=== PATIENT | female | born 1960 | race African-American/Black ===

== ENCOUNTER → 2016-05-31 | Outpatient (CLI) | payer OTHER ==
[2016-01-11 08:30] VITALS: BP 189/88
[~2016-05-31] MED LIST: AMLO5TAB2 PO; ASPI-3 PO; ASPI-482 PO; DICY20TA30 PO; IBUP-1060 PO; NAPR500T3 PO; ONDA4TAB7 PO; OXYC-323 PO; QUET25TA5 PO; TIOT18CA IH; VENTOLIN HFA18 GM IH
--- NOTE | 2016-05-31 15:03 | KCIC ---
Examination: Ultrasound kidneys. HISTORY History of hematuria. COMPARISON None available Findings: The right kidney measures 10.2 x 4.5 x 3.9 centimeters. The left kidney measures 11.0 x 5.8 x 5.0 centimeters. The unit bladder is mildly distended. There is a 1.2 centimeter echogenicity identified in the inferior aspect of the right kidney likely intrarenal collecting system calculus. There is minimal prominence of the right renal pelvis. IMPRESSION 1.3 centimeter echogenicity identified in the inferior right kidney likely intrarenal collecting system calculus. There is minimal prominence of the right renal pelvis could be of prominent extrarenal pelvis or minimal hydronephrosis. Electronically signed by: Guevara Gamboa (May 31, 2016 15:01:35)
--- NOTE | 2016-05-31 15:26 | KCIC ---
Examination: DEXA scan. HISTORY History of postmenopausal screening, osteoporosis. COMPARISON None available. FINDINGS The bone mineral density in the lumbar spine is 1.258 grams per centimeter square with a T-score of 1.9 and a Z-score of 2.1. The bone density in the left hip is 1.348 grams per centimeter square with a T-score of 3.3 and a Z-score of 2.5. Impression : According to world Congress diagnostic guidelines the bone mineral density in the lumbar spine and in the left hip is normal. Electronically signed by: Guevara Gamboa (May 31, 2016 15:24:56)
--- NOTE | 2016-05-31 15:40 | KCIC ---
Bilateral digital screening mammograms with CAD: HISTORY Routine screening. COMPARISON Comparison is made to previous studies dated 09/21/2010 and 11/20/2004. FINDINGS Breast density category A. The skin and nipples show no abnormalities. No abnormal lymph nodes are seen in the axilla. The breast parenchyma is predominately fatty. There are no dominant masses, suspicious calcifications or architectural distortions. IMPRESSION No evidence of malignancy. Recommend routine annual mammographic screening. This study was interpreted with the benefit of Computerized Aided Detection (CAD). Mammography is not 100% sensitive in detecting breast cancer. Therefore, a self breast exam and a clinical breast exam are very important. A negative mammogram does not negate a clinically suspicious finding and should not result in a delay in biopsying a clinically suspicious abnormality. BI-RADS category 1. Negative. This patient's information has been entered into a reminder system for the patient to be notified with the results of this examination and a target date for her next mammograms. Electronically signed by: Maria Esther Miller MD (May 31, 2016 15:38:05)
== END | disposition home or self-care (01) ==
LOC: KCIC US 13:54
PROVIDERS: ATTEND Internal Medicine
DX: Z12.31 Encounter for screening mammogram for malignant neoplasm of breast (principal); Z13.820 Encounter for screening for osteoporosis; Z78.0 Asymptomatic menopausal state
CPT/HCPCS: 76770; 77080; G0202; 77067

== ENCOUNTER 2016-07-18 12:29 | Emergency (ER) | payer OTHER ==
[~2016-07-18] VITALS: Ht 170.2 cm; Wt 117.9 kg
[2016-07-18] MEDS ORDERED: MORPHINE SULFATE 4 MG/ML DISP.SYRIN. IV/SQ PRN (13:00)
[2016-07-18 13:02] LABS: BILIRUBIN,URINE NEGATIVE (NEG); GLUCOSE,URINE NEGATIVE (NEG); NITRITE,URINE NEGATIVE (NEG); PH,URINE 5.5; PROTEIN,URINE NEGATIVE (NEG-TRACE)
--- NOTE | 2016-07-18 13:09 | PHYS DOC ---
Past Medical History Past Medical History: Asthma, Diabetes-Type II, GERD, Hypertension, Kidney Stone Additional Past Medical Histor: FIBROID Past Surgical History: Hysterectomy, Other Additional Past Surgical Histo: HERNIA Alcohol Use: Occasionally Drug Use: None Adult General Chief Complaint Chief Complaint: FLANK PAIN HPI HPI Patient is a 56 year old female who presents with complaint of left-sided flank pain. Patient states that she has been struggling with left flank pain for the past several weeks, however she started getting severe pain starting earlier today which has been constant. Patient rates pain currently is 10 out of 10. Patient states that it is colicky and radiates into her left lower abdomen. Patient denies any associated fevers, vomiting, or bloody stools but patient states that she has had intermittent nausea. Patient states that she had imaging 2 months ago which showed evidence of kidney stones and patient was referred to Dr. Raymundo of urology here [facility]. Patient has not taken any medications to help with symptoms. Patient denies any exacerbating factors. Review of Systems Review of Systems Constitutional: Denies fever or chills [] Eyes: Denies change in visual acuity, redness, or eye pain [] HENT: Denies nasal congestion or sore throat [] Respiratory: Denies cough or shortness of breath [] Cardiovascular: Denies chest pain or edema [] GI: Left flank pain, nausea, denies abdominal pain, vomiting, bloody stools or diarrhea [] : Denies dysuria or hematuria [] Musculoskeletal: Denies back pain or joint pain [] Integument: Denies rash or skin lesions [] Neurologic: Denies headache, focal weakness or sensory changes [] Endocrine: Denies polyuria or polydipsia [] Current Medications Current Medications Current Medications Medications (Trade) Dose Ordered Sig/[facility] Start Time Stop Time Status Last Admin Dose Admin Famotidine (Pepcid) 20 mg 1X ONCE 07/18/16 13:15 07/18/16 13:16 DC 07/18/16 13:27 20 MG Morphine Sulfate 4 mg 4 mg PRN Q15MIN PRN 07/18/16 13:00 07/19/16 12:59 07/18/16 13:28 4 MG Ondansetron HCl (Zofran) 4 mg 1X ONCE 07/18/16 13:15 07/18/16 13:16 DC 07/18/16 13:25 4 MG Sodium Chloride (Iv Sodium Chloride 0.9% 1000ml Bag) 1,000 ml @ 100 mls/hr Q10H 07/18/16 13:15 07/18/16 23:14 07/18/16 13:25 100 MLS/HR Allergies Allergies Allergies Coded Allergies Type Severity Reaction Last Updated Verified No Known Drug Allergies 08/27/13 No Physical Exam Physical Exam Constitutional: Alert, afebrile, appears in mild discomfort. [] HENT: Normocephalic, atraumatic, bilateral external ears normal, oropharynx moist, no oral exudates, nose normal. [] Eyes: PERRLA, EOMI, conjunctiva normal, no discharge. [] Neck: Normal range of motion, no tenderness, supple, no stridor. [] Cardiovascular:Heart rate regular rhythm, no murmur [] Lungs & Thorax: Bilateral breath sounds clear to auscultation [] Abdomen: Bowel sounds normal, soft, no tenderness, no masses, no pulsatile masses. [] Skin: Warm, dry, no erythema, no rash. [] Back: No tenderness, no CVA tenderness. [] Extremities: No tenderness, no cyanosis, no clubbing, ROM intact, no edema. [] Neurologic: Alert and oriented X 3, normal motor function, normal sensory function, no focal deficits noted. [] Current Patient Data Vital Signs Vital Signs Date Time Temp Pulse Resp B/P Pulse Ox O2 Delivery O2 Flow Rate FiO2 07/18/16 13:28 Room Air 07/18/16 12:50 97.8 78 18 145/76 100 97.8 Lab Values Laboratory Tests Test 07/18/16 12:46 07/18/16 13:10 Urine Collection Type Unknown Urine Color Yellow Urine Clarity Clear Urine pH 5.5 Urine Specific [place] 1.025 Urine Protein Negativemg/dL (NEG-TRACE) Urine Glucose (UA) Negativemg/dL (NEG) Urine Ketones (Stick) Negativemg/dL (NEG) Urine Blood Moderate (NEG) Urine Nitrite Negative (NEG) Urine Bilirubin Negative (NEG) Urine Urobilinogen Dipstick 1.0mg/dL (0.2 mg/dL) Urine Leukocyte Esterase Negative (NEG) Urine RBC 3-5/HPF (0-2) Urine WBC Occ/HPF (0-4) Urine Squamous Epithelial Cells Few/LPF Urine Bacteria Few/HPF (0-FEW) Urine Mucus Marked/LPF White Blood Count 9.3x10^3/uL (4.0-11.0) Red Blood Count 4.12x10^6/uL (3.50-5.40) Hemoglobin 12.6g/dL (12.0-15.5) Hematocrit 38.0% (36.0-47.0) Mean Corpuscular Volume 92fL (79-100) Mean Corpuscular Hemoglobin 31pg (25-35) Mean Corpuscular Hemoglobin Concent 33g/dL (31-37) Red Cell Distribution Width 13.6% (11.5-14.5) Platelet Count 272x10^3/uL (140-400) Neutrophils (%) (Auto) 46% (31-73) Lymphocytes (%) (Auto) 44% (24-48) Monocytes (%) (Auto) 8% (0-9) Eosinophils (%) (Auto) 1% (0-3) Basophils (%) (Auto) 0% (0-3) Neutrophils # (Auto) 4.3x10^3uL (1.8-7.7) Lymphocytes # (Auto) 4.1x10^3/uL (1.0-4.8) Monocytes # (Auto) 0.8x10^3/uL (0.0-1.1) Eosinophils # (Auto) 0.1x10^3/uL (0.0-0.7) Basophils # (Auto) 0.0x10^3/uL (0.0-0.2) Sodium Level 142mmol/L (136-145) Potassium Level 3.7mmol/L (3.5-5.1) Chloride Level 107mmol/L (98-107) Carbon Dioxide Level 29mmol/L (21-32) Anion Gap 6 (6-14) Blood Urea Nitrogen 14mg/dL (7-20) Creatinine 1.0mg/dL (0.6-1.0) Estimated GFR (Cockcroft-Gault) 69.9 BUN/Creatinine Ratio 14 (6-20) Glucose Level 88mg/dL (70-99) Calcium Level 9.3mg/dL (8.5-10.1) Total Bilirubin 0.2mg/dL (0.2-1.0) Aspartate Amino Transferase (AST) 16U/L (15-37) Alanine Aminotransferase (ALT) 25U/L (14-59) Alkaline Phosphatase 90U/L (46-116) Total Protein 7.7g/dL (6.4-8.2) Albumin 3.6g/dL (3.4-5.0) Albumin/Globulin Ratio 0.9 (1.0-1.7) L Lipase 81U/L (73-393) Laboratory Tests 07/18/16 13:10 Laboratory Tests 07/18/16 13:10 EKG EKG Not performed [] Radiology/Procedures Radiology/Procedures [facility] [address] [place] [address] IMAGING REPORT Signed PATIENT: PEDRO DUKE ACCOUNT: [id number] : 1960 LOCATION: ER AGE: 56 SEX: F EXAM STATUS: REG ER ORD. PHYSICIAN: IMELDA BUNCH MD REASON: left flank pain, history of kidney stones PROCEDURE: CT ABDOMEN PELVIS WO CONTRAST CT of the abdomen and pelvis without contrast, 07/18/2016: History: Left flank pain, hematuria Noncontrast scans were obtained through the urinary tract utilizing the renal stone protocol. A small parenchymal calcification is noted posteriorly in the right no left renal calcifications are evident. The left renal collecting system and ureter are not dilated. There are parenchymal calcifications in the lower pole of the right kidney. One of these is associated with an overlying cortical scar. The right renal collecting system and right ureter are not dilated. No ureteral calculus is identified, although neither distal ureter can be clearly traced through the pelvis. The partially filled urinary bladder is unremarkable. The unopacified liver shows no abnormality. The gallbladder is unremarkable. No pancreatic abnormality is seen. The spleen is of normal size. The bowel loops are not dilated. There is a moderate amount of stool scattered throughout the colon. The appendix is visualized and shows no abnormality. No free air or free fluid is evident in the abdomen or pelvis. There is bilateral spondylolysis at L5 with a slight spondylolisthesis at L5-S1. IMPRESSION: 1. Right renal parenchymal calcifications. 2. No obstructing urinary tract calculus is identified. PQRS Compliance Statement: One or more of the following individualized dose reduction techniques were utilized for this examination: 1. Automated exposure control 2. Adjustment of the mA and/or kV according to patient size 3. Use of iterative reconstruction technique DICTATED and SIGNED BY: JAZMÍN ROCHA MD DATE: 07/18/16 4731 CC: IMELDA BUNCH MD; MAYNOR ANG MD ~ [] Course & Med Decision Making Course & Med Decision Making Pertinent Labs and Imaging studies reviewed. (See chart for details) Patient was given IV fluids, morphine, and Zofran. On reevaluation the patient states her pain has improved at this time. The patient's CT does not reveal findings consistent with ureteral calculus. I have suspicion that the patient's symptoms may be due to radiculopathy from degenerative arthritis in the lumbar spine. The patient was given IV Decadron and will be continued on additional four-day course of prednisone and also will be given hydrocodone for breakthrough pain for outpatient therapy. Advised patient follow-up with her primary doctor in 3-5 days and return to the emergency department for any worsening symptoms per patient voiced understanding and in agreement with treatment plan. Dragon Disclaimer Dragon Disclaimer This electronic medical record was generated, in whole or in part, using a voice recognition dictation system. Departure Departure Impression: Primary Impression: Left flank pain Disposition: 01 HOME, SELF-CARE Condition: IMPROVED Referrals: MAYNOR ANG MD (PCP) Patient Instructions: Flank Pain Additional Instructions: Your workup today did not show convincing evidence for kidney stones as a cause of your pain. It is suspected that your symptoms may be due to arthritis of your lumbar spine. Follow-up with your primary doctor in 3-5 days. Return to the emergency department for any worsening symptoms. Scripts Hydrocodone/Apap 5-325 (Mcdonald 5-325 Tablet)1 Each Tablet1-2 Tab PO Q4-6HRS PRN PAIN #20 TAB Prov:IMELDA BUNCH MD 07/18/16 Prednisone 20 Mg Tablet1 Tab PO BID #8 TAB Start this medication on July 19, 2016. Prov:IMELDA BUNCH MD 07/18/16 IMELDA BUNCH MD Jul 18, 2016 13:09
[2016-07-18 13:15] LABS: BACTERIA,URINE FEW /HPF (0-FEW); SQUAMOUS EPITHELIAL CELL,UR FEW /LPF; WBC,URINE OCC /HPF (0-4)
[2016-07-18] MEDS ORDERED: ONDANSETRON PF 4 MG/2 ML VIAL. IV ONE (13:15)
[2016-07-18] MEDS ORDERED: FAMOTIDINE 20 MG/2 ML VIAL IVP ONE (13:15)
[2016-07-18] MEDS ORDERED: IV NORMAL SALINE 1000ML BAG 1,000 ML IV SCH (13:15)
[2016-07-18 13:20] LABS: BASO % 0 % (0-3); EOS % 1 % (0-3); HEMOGLOBIN 12.6 g/dL (12.0-15.5); LYMPH # 4.1 x10^3/uL (1.0-4.8); LYMPH % 44 % (24-48); MEAN CORPUSCULAR HEMOGLOBIN 31 pg (25-35); MEAN CORPUSCULAR HGB CONC 33 g/dL (31-37); MEAN CORPUSCULAR VOLUME 92 fL (79-100); MONO % 8 % (0-9); NEUT % 46 % (31-73); PLATELET COUNT 272 x10^3/uL (140-400); RED BLOOD COUNT 4.12 x10^6/uL (3.50-5.40); RED CELL DISTRIBUTION WIDTH 13.6 % (11.5-14.5); WHITE BLOOD COUNT 9.3 x10^3/uL (4.0-11.0)
[2016-07-18 13:32] LABS: CALCIUM 9.3 mg/dL (8.5-10.1); GFR 69.9; POTASSIUM 3.7 mmol/L (3.5-5.1)
[2016-07-18 13:38] LABS: ALBUMIN 3.6 g/dL (3.4-5.0); ALBUMIN/GLOBULIN RATIO 0.9 (1.0-1.7); TOTAL BILIRUBIN 0.2 mg/dL (0.2-1.0); TOTAL PROTEIN 7.7 g/dL (6.4-8.2)
[2016-07-18 13:53] VITALS: BP 123/65
--- NOTE | 2016-07-18 13:55 | RAD ---
CT of the abdomen and pelvis without contrast, 07/18/2016: History: Left flank pain, hematuria Noncontrast scans were obtained through the urinary tract utilizing the renal stone protocol. A small parenchymal calcification is noted posteriorly in the right no left renal calcifications are evident. The left renal collecting system and ureter are not dilated. There are parenchymal calcifications in the lower pole of the right kidney. One of these is associated with an overlying cortical scar. The right renal collecting system and right ureter are not dilated. No ureteral calculus is identified, although neither distal ureter can be clearly traced through the pelvis. The partially filled urinary bladder is unremarkable. The unopacified liver shows no abnormality. The gallbladder is unremarkable. No pancreatic abnormality is seen. The spleen is of normal size. The bowel loops are not dilated. There is a moderate amount of stool scattered throughout the colon. The appendix is visualized and shows no abnormality. No free air or free fluid is evident in the abdomen or pelvis. There is bilateral spondylolysis at L5 with a slight spondylolisthesis at L5-S1. IMPRESSION: 1. Right renal parenchymal calcifications. 2. No obstructing urinary tract calculus is identified. PQRS Compliance Statement: One or more of the following individualized dose reduction techniques were utilized for this examination: 1. Automated exposure control 2. Adjustment of the mA and/or kV according to patient size 3. Use of iterative reconstruction technique
[2016-07-18] MEDS ORDERED: HYDR-971 PO (14:15)
[2016-07-18] MEDS ORDERED: PRED20TA PO (14:15)
[2016-07-18] MEDS ORDERED: DEXAMETHASONE SOD PHOS 4 MG/ML VIAL IV ONE (14:30)
== END 2016-07-18 14:27 | disposition home or self-care (01) ==
LOC: ER 12:29
DX: R10.9 Unspecified abdominal pain (principal); R11.0 Nausea; J45.909 Unspecified asthma, uncomplicated; E11.9 Type 2 diabetes mellitus without complications; K21.9 Gastro-esophageal reflux disease without esophagitis; I10 Essential (primary) hypertension; Z87.442 Personal history of urinary calculi
CPT/HCPCS: 36415; 74176; 80053; 81001; 83690; 85027; 96361; 96374; 96375; 99285; J1100; J2270; J2405; J7030; S0028

== ENCOUNTER → 2016-08-28 | Outpatient (CLI) | payer OTHER ==
[~2016-08-28] MED LIST changes: +CONTRAST GIVEN MC PRN; +HYDR-971 PO; +IOHEXOL 300 MG/ML 75 ML VIAL IV ONE; +PRED20TA PO
--- NOTE | 2016-08-28 11:20 | RAD ---
Examination: CT of the abdomen pelvis without and with IV contrast History: History of hematuria Comparison: 07/18/2016 Technique: Axial CT images of the paranasal performed without and with IV contrast using CT urogram protocol. Coronal and sagittal reformats were performed. PQRS Compliance Statement: One or more of the following individualized dose reduction techniques were utilized for this examination: 1. Automated exposure control 2. Adjustment of the mA and/or kV according to patient size 3. Use of iterative reconstruction technique Findings: The visualized bibasal lungs grossly appears unremarkable. The visualized liver, spleen, adrenals grossly appears unremarkable. The visualized pancreas grossly appears unremarkable. The gallbladder is mildly distended. The small bowel is nondilated The stomach is mildly distended. Feces and gas noted throughout the colon The visualized appendix grossly appears unremarkable. The bilateral kidneys enhance symmetrically. Cortical calcifications identified in the right kidney grossly similar to prior exam. 2 small punctate 2 to 3 mm intrarenal collecting system calculi identified in the right kidney. No evidence of hydronephrosis. The urinary bladder is mildly distended with contrast. No evidence of filling defect identified in the urinary bladder. No evidence of solid appearing lesions identified in the bilateral kidneys. There is a small subcentimeter hypodensity identified in the right kidney best visualized on series 4 image #57 measuring 8 mm is difficult to characterize probably a cyst given the appearance. Mild degenerative changes lumbar spine. L5 spondylolysis. Impression: 1. 2 punctate 2 to 3 mm intrarenal collecting system calculi identified in the right kidney. No evidence of obstructing calculus identified. No evidence of hydronephrosis. No evidence of enhancing lesion identified. 2. Small 8 mm hypodensity identified in the right kidney is difficult to characterize probably a cyst. Follow-up examination in 6 months is recommended to document stability.
== END | disposition home or self-care (01) ==
LOC: CT 08:16
PROVIDERS: ATTEND Urology
DX: R31.9 Hematuria, unspecified (principal); M47.896 Other spondylosis, lumbar region
CPT/HCPCS: 74178; Q9967

== ENCOUNTER 2016-10-06 06:02 | Emergency (ER) | payer OTHER ==
[~2016-10-06] VITALS: Ht 170.2 cm; Wt 117.9 kg
[~2016-10-06 06:02] MED LIST changes: -CONTRAST GIVEN MC PRN; -IOHEXOL 300 MG/ML 75 ML VIAL IV ONE
[2016-10-06 06:05] VITALS: BP 167/73
[2016-10-06] MEDS ORDERED: NAPROXEN 250 MG TABLET PO STA (06:44)
[2016-10-06] MEDS ORDERED: HYDR-971 PO (06:50)
[2016-10-06] MEDS ORDERED: NAPR375T3 PO (06:50)
--- NOTE | 2016-10-06 06:51 | PHYS DOC ---
Past Medical History Past Medical History: Asthma, Diabetes-Type II, GERD, Hypertension, Kidney Stone Additional Past Medical Histor: FIBROID Past Surgical History: Hysterectomy, Other Additional Past Surgical Histo: HERNIA Alcohol Use: Occasionally Drug Use: None Adult General Chief Complaint Chief Complaint: KNEE SWELLING HPI HPI Patient is a 56 year old female who presents with complaint of left knee swelling and pain. Patient states that her symptoms started yesterday and have been gradually worsening. Patient states that she has been having difficulty walking up and down steps due to her pain. Patient lives in an apartment on the third floor. Patient states that she has had trouble with her knees in the past but is unsure if she has history of arthritis or other problems with her knees. Patient does admit that she has had an intra-articular injection in the past for treatment. Patient follows a Dr. Ang for primary care. Patient also mentioned that she has had intermittent chills and fatigue over the past 3 days. Patient denies any fevers, shortness of breath, or chest pain. Patient states that she is currently not having chills or fatigue at this time. The patient has taken ibuprofen with no relief in symptoms. Patient rates her pain currently as 5 out of 10. Review of Systems Review of Systems Constitutional: Intermittent chills and fatigue [] Eyes: Denies change in visual acuity, redness, or eye pain [] HENT: Denies nasal congestion or sore throat [] Respiratory: Denies cough or shortness of breath [] Cardiovascular: Denies chest pain or edema [] GI: Denies abdominal pain, nausea, vomiting, bloody stools or diarrhea [] : Denies dysuria or hematuria [] Musculoskeletal: Left knee pain and swelling [] Integument: Denies rash or skin lesions [] Neurologic: Denies headache, focal weakness or sensory changes [] Allergies Allergies Allergies Coded Allergies Type Severity Reaction Last Updated Verified No Known Drug Allergies 08/27/13 No Physical Exam Physical Exam Constitutional: Well developed, well nourished, no acute distress, non-toxic appearance. [] HENT: Normocephalic, atraumatic, bilateral external ears normal, oropharynx moist, no oral exudates, nose normal. [] Eyes: PERRLA, EOMI, conjunctiva normal, no discharge. [] Neck: Normal range of motion, no tenderness, supple, no stridor. [] Cardiovascular:Heart rate regular rhythm, no murmur [] Lungs & Thorax: Bilateral breath sounds clear to auscultation [] Abdomen: Bowel sounds normal, soft, no tenderness, no masses, no pulsatile masses. [] Skin: Warm, dry, no erythema, no rash. [] Back: No tenderness, no CVA tenderness. [] Extremities: Mild left knee swelling, no warmth, minimal tenderness along anterior joint line, full range of motion present, no cyanosis, no clubbing, ROM intact, no edema. [] Neurologic: Alert and oriented X 3, normal motor function, normal sensory function, no focal deficits noted. [] Current Patient Data Vital Signs Vital Signs Date Time Temp Pulse Resp B/P (MAP) Pulse Ox O2 Delivery O2 Flow Rate FiO2 10/06/16 06:05 98.4 66 18 167/73 (104) 100 Room Air 98.4 EKG EKG Not performed [] Radiology/Procedures Radiology/Procedures Not performed [] Course & Med Decision Making Course & Med Decision Making Pertinent Labs and Imaging studies reviewed. (See chart for details) The patient's clinical findings are consistent with exacerbation of chronic degenerative arthritis. The patient mentioned symptoms of fatigue and chills, however patient states that these symptoms are not present at this time. These are very nonspecific symptoms and will need further self-monitoring is currently these don't appear to be associated with an acute process. Patient was given Naprosyn and an Jose wrap was applied to the left knee by the emergency department nurse. My evaluation post wrap application showed normal capillary refill and normal sensation in all 5 digits of the left foot. Patient will be continued on naproxen and hydrocodone for treatment. Advised adjunct RICE therapy for improvement in symptoms. Recommended that the patient schedule an appointment in the next week with her primary doctor for reevaluation and likely need for referral to physical therapy or orthopedic surgery for further evaluation. Advised return emergency department for any worsening symptoms. Patient voiced understanding and in agreement with treatment plan. Dragon Disclaimer Dragon Disclaimer This electronic medical record was generated, in whole or in part, using a voice recognition dictation system. Departure Departure Impression: Primary Impression: Arthritis Disposition: 01 HOME, SELF-CARE Condition: GOOD Referrals: MAYNOR ANG MD (PCP) Patient Instructions: Arthritis, Degenerative-Brief, Knee Wraps (Elastic Bandage) and RICE Additional Instructions: Follow-up with Dr. Ang in one week for reevaluation. Return to the emergency department for any worsening symptoms. Scripts Naproxen (NAPROXEN) 375 Mg Tablet 1 TAB PO BID Y for INFLAMMATION, #20 TAB 0 Refills Prov: IMELDA BUNCH MD 10/06/16 Hydrocodone/Apap 5-325 (NORCO 5-325 TABLET) 1 Each Tablet 1-2 TAB PO Q4-6HRS Y for PAIN, #20 TAB Prov: IMELDA BUNCH MD 10/06/16 IMELDA BUNCH MD Oct 06, 2016 06:51
== END 2016-10-06 07:03 | disposition home or self-care (01) ==
LOC: ER 06:02
DX: M17.12 Unilateral primary osteoarthritis, left knee (principal); J45.909 Unspecified asthma, uncomplicated; E11.9 Type 2 diabetes mellitus without complications; K21.9 Gastro-esophageal reflux disease without esophagitis; I10 Essential (primary) hypertension; Z87.442 Personal history of urinary calculi; Z90.710 Acquired absence of both cervix and uterus
CPT/HCPCS: 99283

== ENCOUNTER 2018-07-08 10:36 | Emergency (ER) | payer OTHER ==
[~2018-07-08] VITALS: Ht 167.6 cm; Wt 117.9 kg
[~2018-07-08 10:36] MED LIST changes: +ACYC400T PO; +AMLO10TA8 PO; +AMLO5TAB10 PO; -AMLO5TAB2 PO; +ATROVENT IH; +CELE100C59 PO; +FLUT1DIS3 IN; +GABA100C6 PO; +HYDR-3164 PO; -HYDR-971 PO; +LOSA100T14 PO; +METF500T16 PO; +NAPR-514 PO; +NAPR-695 PO; -NAPR500T3 PO; +OXYB5TAB PO; -OXYC-323 PO; +OXYC1TAB15 PO
[2018-07-08 10:47] VITALS: BP 172/84
[2018-07-08] MEDS ORDERED: CYCL10TA2 PO (11:00)
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
== END 2018-07-08 11:10 | disposition home or self-care (01) ==
LOC: ER 10:36
DX: S00.03XA Contusion of scalp, initial encounter (principal); R51 Headache; J44.9 Chronic obstructive pulmonary disease, unspecified; E11.9 Type 2 diabetes mellitus without complications; I10 Essential (primary) hypertension; K21.9 Gastro-esophageal reflux disease without esophagitis; V79.88XA Bus occupant (driver) (passenger) injured in other specified transport accidents, initial encounter; Y93.89 Activity, other specified; Y92.481 Parking lot as the place of occurrence of the external cause; Y99.8 Other external cause status
CPT/HCPCS: 99283

== ENCOUNTER 2018-08-14 16:52 | Emergency (ER) | payer OTHER ==
[~2018-08-14] VITALS: Ht 170.2 cm; Wt 117.9 kg
[~2018-08-14 16:52] MED LIST changes: +CYCL10TA2 PO
[2018-08-14 17:00] VITALS: BP 138/88
[2018-08-14] MEDS ORDERED: IPRATRPIUM/ALBUTEROL 0.5/2.5MG 3 ML NEBU. NEB ONE (17:45)
[2018-08-14] MEDS ORDERED: predniSONE 10 MG TABLET PO ONE (17:45)
--- NOTE | 2018-08-14 17:50 | PHYS DOC ---
Past Medical History Past Medical History: Asthma, COPD, Diabetes-Type II, GERD, Hypertension, Kidney Stone Additional Past Medical Histor: FIBROID Past Surgical History: Hysterectomy, Other Additional Past Surgical Histo: HERNIA Alcohol Use: Occasionally Drug Use: None Adult General Chief Complaint Chief Complaint: COUGH HPI HPI 58-year-old female presents to ER via POV for complaints of productive cough and sore throat. Patient reports she has history of COPD and is a daily smoker. She denies chest pain or palpitations. She reports she has had yellowish phlegm. She reports she's had labored breathing. She reports she has felt feverish but hasn't checked her temperature. Patient denies any other symptoms. She reports regular appetite denies any vomiting or diarrhea episodes. Patient denies urinary symptoms. Review of Systems Review of Systems Constitutional: Denies fever or chills [] Eyes: Denies change in visual acuity, redness, or eye pain [] HENT: Denies nasal congestion. Reports sore throat Respiratory: Reports prod. cough with labored breathing Cardiovascular: Denies CP/palpitations or chest tightness GI: Denies abdominal pain, nausea, vomiting, bloody stools or diarrhea [] : Denies dysuria or hematuria [] Musculoskeletal: Denies back/neck pain or joint pain [] Integument: Denies rash or skin lesions [] Neurologic: Denies headache, focal weakness or sensory changes. Denies dizziness Endocrine: Denies polyuria or polydipsia [] All other systems were reviewed and found to be within normal limits, except as documented in this note. Current Medications Current Medications Current Medications Medications (Trade) Dose Ordered Sig/Ayush Start Time Stop Time Status Last Admin Dose Admin Albuterol/ Ipratropium (Duoneb) 3 ml 1X ONCE 08/14/18 17:45 08/14/18 17:46 DC 08/14/18 17:50 3 ML Prednisone (Prednisone) 50 mg 1X ONCE 08/14/18 17:45 08/14/18 17:46 DC 08/14/18 18:07 50 MG Allergies Allergies Allergies Coded Allergies Type Severity Reaction Last Updated Verified No Known Drug Allergies 08/27/13 No Physical Exam Physical Exam Constitutional: Well developed, well nourished, no acute distress, non-toxic appearance. [] HENT: Normocephalic, atraumatic, bilateral ears normal, oropharynx moist- no pharyngeal swelling/erythema, no oral exudates, nose normal. [] Eyes: Pupils equal, conjunctiva normal, no discharge. [] Neck: Normal range of motion, no tenderness, supple, no stridor/gross adenopathy Cardiovascular: Heart rate regular rhythm, no murmur [] Lungs & Thorax: Diminished air movement thru all lung weiner with slight expiratory wheeze rt upper lung field. Nonprod. cough during exam. Speaking in full sentences. Resp. equal/nonlabored Abdomen: Bowel sounds normal, soft, no tenderness, no masses, no pulsatile masses. [] Skin: Warm, dry, no erythema, no rash. [] Back: No tenderness, no CVA tenderness. [] Extremities: No tenderness, no cyanosis, no clubbing, ROM intact, no edema. [] Neurologic: Alert and oriented X 3, normal motor function, normal sensory function, no focal deficits noted. [] Psychologic: Affect normal, judgement normal, mood normal. [] Current Patient Data Vital Signs Vital Signs Date Time Temp Pulse Resp B/P (MAP) Pulse Ox O2 Delivery O2 Flow Rate FiO2 08/14/18 17:53 99 Room Air 08/14/18 17:00 97.9 87 20 138/88 (105) 97.9 EKG EKG [] Course & Med Decision Making Course & Med Decision Making Pertinent Imaging studies reviewed. (See chart for details) Patient's case and imaging was discussed with Dr. Greene who viewed chest x- ray with no obvious acute findings. This was discussed with patient. Patient was provided with dose of prednisone and DuoNeb treatment on reevaluation patient's wheezing right upper lobe has subsided and patient has increased air movement throughout all lung weiner. Patient reports her symptoms significantly improved and is denying any shortness of air at this time. Patient had reported she was having no chest pain or tightness and continues to deny on reevaluation. Patient's room air O2 sat is 99%. Patient is a daily smoker so smoking cessation was discussed. Patient encouraged to increase her fluid intake. Pt has inhaler to use at home. Discussed plans for home discharge patient to follow-up with her primary care physician this week for reevaluation. Will provide patient with prescription for prednisone and doxycycline- with discussion on smoking/possible bronchitis. At time of discharge discussion patient was in no visible distress with equal nonlabored respirations. Education provided on signs and symptoms to return to ER for and discharge instructions were discussed. Dragon Disclaimer Dragon Disclaimer This electronic medical record was generated, in whole or in part, using a voice recognition dictation system. Departure Departure Impression: Primary Impression: Bronchitis Disposition: 01 HOME, SELF-CARE Condition: STABLE Referrals: MEGA CATHERINE (PCP) Patient Instructions: Bronchitis, Cough, Adult, Smoking Cessation Additional Instructions: Drink plenty of fluids. Avoid smoking. Continue use of your inhaler as prescribed. Follow-up with your primary doctor if symptoms persist and with concerns. Scripts Doxycycline Hyclate (DOXYCYCLINE HYCLATE) 100 Mg Capsule 1 CAP PO BID, #14 CAP 0 Refills Prov: LOU UMANZOR APRN 08/14/18 Prednisone (PREDNISONE) 50 Mg Tablet 1 TAB PO DAILY, #4 TAB 0 Refills Start on 08/15/18 Prov: LOU UMANZOR APRN 08/14/18 LOU UMANZOR APRN August 14, 2018 17:50
[2018-08-14] MEDS ORDERED: DOXY100C2 PO (18:28)
[2018-08-14] MEDS ORDERED: PRED50TA PO (18:28)
--- NOTE | 2018-08-14 19:13 | RAD ---
CHEST PA LATERAL History: Productive cough with yellow sputum. Asthma. COMPARISON: May 08, 2018. Heart size is not enlarged. No evidence of pneumothorax. No pleural effusion. The previously seen suprahilar opacity is no longer identified. There is no evidence of an infiltrate. The skeletal structures appear intact. IMPRESSION: No consolidating infiltrate. Electronically signed by: Eleazar Enriquez MD (08/14/2018 7:10 PM) [facility]
== END 2018-08-14 19:12 | disposition home or self-care (01) ==
LOC: ER 16:52
DX: J44.9 Chronic obstructive pulmonary disease, unspecified (principal); F17.200 Nicotine dependence, unspecified, uncomplicated; K21.9 Gastro-esophageal reflux disease without esophagitis; I10 Essential (primary) hypertension; E11.9 Type 2 diabetes mellitus without complications; Z87.442 Personal history of urinary calculi
CPT/HCPCS: 71046; 94640; 99284; J7512; J7620

== ENCOUNTER 2018-12-17 13:55 | Emergency (ER) | payer OTHER ==
[~2018-12-17] VITALS: Ht 167.6 cm; Wt 113.4 kg
[~2018-12-17 13:55] MED LIST changes: +DOXY100C2 PO; -OXYB5TAB PO; +OXYB5TAB2 PO; +PRED50TA PO
[2018-12-17] MEDS ORDERED: IV NORMAL SALINE 1000ML BAG 1,000 ML IV SCH (14:13)
[2018-12-17] MEDS ORDERED: KETOROLAC 30 MG/ML VIAL. IV ONE (14:15)
[2018-12-17] MEDS ORDERED: KETOROLAC 15 MG/ML VIAL. ONE (14:17)
[2018-12-17 14:21] LABS: BILIRUBIN,URINE SMALL (NEG); CLARITY,URINE CLOUDY; COLOR,URINE YELLOW; NITRITE,URINE NEGATIVE (NEG); PH,URINE 5.5; PROTEIN,URINE NEGATIVE (NEG-TRACE)
[2018-12-17 14:29] LABS: BARBITURATES NEG (NEG); BENZODIAZEPINES NEG (NEG); CANNABINOIDS NEG (NEG); COCAINE NEG (NEG); METHADONE NEG (NEG); OPIATES POS (NEG); PHENCYCLIDINE NEG (NEG)
[2018-12-17 14:30] LABS: AMPHETAMINE/METHAMPHETAMINE NEG (NEG); BACTERIA,URINE 0 /HPF (0-FEW); SQUAMOUS EPITHELIAL CELL,UR FEW /LPF; WBC,URINE RARE /HPF (0-4)
[2018-12-17 14:51] LABS: BASO # 0.1 x10^3/uL (0.0-0.2); BASO % 1 % (0-3); EOS # 0.1 x10^3/uL (0.0-0.7); EOS % 1 % (0-3); HEMATOCRIT 37.7 % (36.0-47.0); HEMOGLOBIN 12.9 g/dL (12.0-15.5); LYMPH # 3.2 x10^3/uL (1.0-4.8); LYMPH % 37 % (24-48); MEAN CORPUSCULAR HEMOGLOBIN 32 pg (25-35); MEAN CORPUSCULAR HGB CONC 34 g/dL (31-37); MEAN CORPUSCULAR VOLUME 93 fL (79-100); MONO # 0.9 x10^3/uL (0.0-1.1); MONO % 11 % (0-9); NEUT # 4.3 x10^3/uL (1.8-7.7); NEUT % 50 % (31-73); PLATELET COUNT 286 x10^3/uL (140-400); RED BLOOD COUNT 4.06 x10^6/uL (3.50-5.40); RED CELL DISTRIBUTION WIDTH 13.8 % (11.5-14.5); WHITE BLOOD COUNT 8.6 x10^3/uL (4.0-11.0)
--- NOTE | 2018-12-17 15:05 | RAD ---
CT ABDOMEN PELVIS WO CONTRAST Indication: Right flank pain. Exposure: One or more of the following individualized dose reduction techniques were utilized for this examination: 1. Automated exposure control 2. Adjustment of the mA and/or kV according to patient size 3. Use of iterative reconstruction technique. Comparison: None are available. Technique: No intravenous contrast given. No oral contrast per request. Findings: Evaluation of solid viscera, bowel and vasculature is compromised by the noncontrast technique. Comparison: Some images are available from scan of August 28, 2016, without report. FINDINGS: Lung bases are clear. Liver mildly enlarged, 18.5 cm cephalocaudal at the right lobe. No evidence of focal lesion. Spleen unremarkable. Pancreas difficult to distinguish from adjacent unopacified bowel loops, particularly the pancreatic head, no evidence of peripancreatic fluid or inflammatory change. No adrenal mass. Calcification at the cortical surface of the lower pole of the right kidney is stable as is some adjacent overlying cortical scarring. No other calcifications at the lower pole are also roughly stable. No evidence of right hydronephrosis. No ureteric dilatation. There is a small calcification along the course of the right ureter measuring 5 mm, but unchanged since the prior study and probably extra ureteric. No evidence of left sided calculus or obstruction. No calcified gallstone. Aorta nonaneurysmal. No significant lymph node enlargement. No evidence of acute colitis. Mild retained stool in the colon. Appendix appears normal. No evidence of pneumoperitoneum or ascites. No evidence of a pelvic mass. Urinary bladder is not adequately distended for evaluation. Degenerative spondylosis of the spine. Appearance and alignment appears similar to the prior study. Mild anterolisthesis of L4 and L5. Degenerative changes at the skeletal pelvis. IMPRESSION: 1. Stable right renal calculi/calcifications. Small calcification along the course of the mid right ureter, probably extra ureteric as it was also seen previously and there is no proximal dilatation. No evidence of hydronephrosis or new calculus. 2. Mild hepatomegaly. Electronically signed by: Eleazar Enriquez MD (12/17/2018 3:03 PM) [id number]
[2018-12-17 15:09] LABS: CALCIUM 9.4 mg/dL (8.5-10.1); CREATININE 0.9 mg/dL (0.6-1.0); GFR 78.4; POTASSIUM 3.9 mmol/L (3.5-5.1)
[2018-12-17 15:14] LABS: ALBUMIN 3.7 g/dL (3.4-5.0); TOTAL BILIRUBIN 0.2 mg/dL (0.2-1.0); TOTAL PROTEIN 7.5 g/dL (6.4-8.2)
[2018-12-17] MEDS ORDERED: NAPR-683 PO (15:54)
[2018-12-17] MEDS ORDERED: CYCL10TA2 PO (15:54)
--- NOTE | 2018-12-17 15:54 | PHYS DOC ---
Past Medical History Past Medical History: Anxiety, Asthma, COPD, Diabetes-Type II, GERD, Hypertension, Kidney Stone Additional Past Medical Histor: FIBROID Past Surgical History: Hysterectomy, Other Additional Past Surgical Histo: HERNIA Additional Information: /2 ppd Alcohol Use: Rarely Drug Use: None Adult General Chief Complaint Chief Complaint: FLANK PAIN HPI HPI Patient is a 58 year old female who presents via EMS with complaining of right flank pain. Patient complaining of constant right flank pain for the last 4 days as a aching pain without radiation and rated her pain 10 over 10. Patient states she was seen at [facility] yesterday and was diagnosed with kidney stone after having x-ray and discharged home with prescription of [place] and some other medication but her pain did not get better. Patient denies nausea and vomi ting, diarrhea and constipation, hematuria and urinary symptom. Patient states she has history of distal long time ago with the same symptom. She has history of anxiety disorder and is very anxious at arrival to ER. Review of Systems Review of Systems Constitutional: Denies fever or chills [] Eyes: Denies change in visual acuity, redness, or eye pain [] HENT: Denies nasal congestion or sore throat [] Respiratory: Denies cough or shortness of breath [] Cardiovascular: No additional information not addressed in HPI [] GI: Denies abdominal pain, nausea, vomiting, bloody stools or diarrhea [] : Denies dysuria or hematuria , reports flank pain[] Musculoskeletal: Denies back pain or joint pain [] Integument: Denies rash or skin lesions [] Neurologic: Denies headache, focal weakness or sensory changes [] Endocrine: Denies polyuria or polydipsia [] All other systems were reviewed and found to be within normal limits, except as documented in this note. Current Medications Current Medications Current Medications Medications (Trade) Dose Ordered Sig/Ayush Start Time Stop Time Status Last Admin Dose Admin Ketorolac Tromethamine (Toradol 15mg Vial) 15 mg STK-MED ONCE 12/17/18 14:17 12/17/18 14:17 DC Ketorolac Tromethamine (Toradol 30mg Vial) 30 mg 1X ONCE 12/17/18 14:15 12/17/18 14:17 DC 12/17/18 14:32 30 MG Sodium Chloride 1,000 ml @ 1,000 mls/hr Q1H 12/17/18 14:13 12/17/18 15:12 DC 12/17/18 14:32 1,000 MLS/HR Allergies Allergies Allergies Coded Allergies Type Severity Reaction Last Updated Verified No Known Drug Allergies 08/27/13 No Physical Exam Physical Exam Constitutional: Well nourished, mild distress, non-toxic appearance. [] HENT: Normocephalic, atraumatic. Eyes: PERRLA, EOMI, conjunctiva normal, no discharge. [] Neck: Normal range of motion, no tenderness, supple, no stridor. [] Cardiovascular:Heart rate regular rhythm, no murmur [] Lungs & Thorax: Bilateral breath sounds clear to auscultation [] Abdomen: Bowel sounds normal, soft, no tenderness, no masses, no pulsatile masses. [] Skin: Warm, dry, no erythema, no rash. [] Back: No tenderness, no CVA tenderness. [] Extremities: No tenderness, no cyanosis, no clubbing, ROM intact, no edema. [] Neurologic: Alert and oriented X 3, no focal deficits noted. [] Psychologic: Affect anxious, judgement normal, mood normal. [] Current Patient Data Vital Signs Vital Signs Date Time Temp Pulse Resp B/P (MAP) Pulse Ox O2 Delivery O2 Flow Rate FiO2 12/17/18 15:05 64 16 165/76 (105) 96 Room Air 12/17/18 14:00 98.4 98.4 Lab Values Laboratory Tests Test 12/17/18 14:02 12/17/18 14:30 Urine Collection Type Unknown Urine Color Yellow Urine Clarity Cloudy Urine pH 5.5 Urine Specific Cylinder >=1.030 Urine Protein Negative mg/dL (NEG-TRACE) Urine Glucose (UA) Negative mg/dL (NEG) Urine Ketones (Stick) Negative mg/dL (NEG) Urine Blood Small (NEG) Urine Nitrite Negative (NEG) Urine Bilirubin Small (NEG) Urine Urobilinogen Dipstick 1.0 mg/dL (0.2 mg/dL) Urine Leukocyte Esterase Negative (NEG) Urine RBC 1-2 /HPF (0-2) Urine WBC Rare /HPF (0-4) Urine Squamous Epithelial Cells Few /LPF Urine Bacteria 0 /HPF (0-FEW) Urine Mucus Mod /LPF Urine Opiates Screen Pos (NEG) Urine Methadone Screen Neg (NEG) Urine Barbiturates Neg (NEG) Urine Phencyclidine Screen Neg (NEG) Urine Amphetamine/Methamphetamine Neg (NEG) Urine Benzodiazepines Screen Neg (NEG) Urine Cocaine Screen Neg (NEG) Urine Cannabinoids Screen Neg (NEG) Urine Ethyl Alcohol Neg (NEG) White Blood Count 8.6 x10^3/uL (4.0-11.0) Red Blood Count 4.06 x10^6/uL (3.50-5.40) Hemoglobin 12.9 g/dL (12.0-15.5) Hematocrit 37.7 % (36.0-47.0) Mean Corpuscular Volume 93 fL (79-100) Mean Corpuscular Hemoglobin 32 pg (25-35) Mean Corpuscular Hemoglobin Concent 34 g/dL (31-37) Red Cell Distribution Width 13.8 % (11.5-14.5) Platelet Count 286 x10^3/uL (140-400) Neutrophils (%) (Auto) 50 % (31-73) Lymphocytes (%) (Auto) 37 % (24-48) Monocytes (%) (Auto) 11 % (0-9) H Eosinophils (%) (Auto) 1 % (0-3) Basophils (%) (Auto) 1 % (0-3) Neutrophils # (Auto) 4.3 x10^3/uL (1.8-7.7) Lymphocytes # (Auto) 3.2 x10^3/uL (1.0-4.8) Monocytes # (Auto) 0.9 x10^3/uL (0.0-1.1) Eosinophils # (Auto) 0.1 x10^3/uL (0.0-0.7) Basophils # (Auto) 0.1 x10^3/uL (0.0-0.2) Sodium Level 143 mmol/L (136-145) Potassium Level 3.9 mmol/L (3.5-5.1) Chloride Level 106 mmol/L (98-107) Carbon Dioxide Level 28 mmol/L (21-32) Anion Gap 9 (6-14) Blood Urea Nitrogen 16 mg/dL (7-20) Creatinine 0.9 mg/dL (0.6-1.0) Estimated GFR (Cockcroft-Gault) 78.4 BUN/Creatinine Ratio 18 (6-20) Glucose Level 104 mg/dL (70-99) H Calcium Level 9.4 mg/dL (8.5-10.1) Total Bilirubin 0.2 mg/dL (0.2-1.0) Aspartate Amino Transferase (AST) 19 U/L (15-37) Alanine Aminotransferase (ALT) 20 U/L (14-59) Alkaline Phosphatase 87 U/L (46-116) Total Protein 7.5 g/dL (6.4-8.2) Albumin 3.7 g/dL (3.4-5.0) Albumin/Globulin Ratio 1.0 (1.0-1.7) Lipase 66 U/L (73-393) L Laboratory Tests 12/17/18 14:30 Laboratory Tests 12/17/18 14:30 EKG EKG [] Radiology/Procedures Radiology/Procedures [][facility] [address] [place] [address] IMAGING REPORT Signed PATIENT: PEDRO DUKE RACCOUNT: [id number] : 1960 LOCATION: ER AGE: 58 SEX: F EXAM STATUS: PRE ER ORD. PHYSICIAN: JUAN A JENNINGS MD REASON: right flank pain PROCEDURE: CT ABDOMEN PELVIS WO CONTRAST CT ABDOMEN PELVIS WO CONTRAST Indication: Right flank pain. Exposure: One or more of the following individualized dose reduction techniques were utilized for this examination: 1. Automated exposure control 2. Adjustment of the mA and/or kV according to patient size 3. Use of iterative reconstruction technique. Comparison: None are available. Technique: No intravenous contrast given. No oral contrast per request. Findings: Evaluation of solid viscera, bowel and vasculature is compromised by the noncontrast technique. Comparison: Some images are available from scan of August 28, 2016, without report. FINDINGS: Lung bases are clear. Liver mildly enlarged, 18.5 cm cephalocaudal at the right lobe. No evidence of focal lesion. Spleen unremarkable. Pancreas difficult to distinguish from adjacent unopacified bowel loops, particularly the pancreatic head, no evidence of peripancreatic fluid or inflammatory change. No adrenal mass. Calcification at the cortical surface of the lower pole of the right kidney is stable as is some adjacent overlying cortical scarring. No other calcifications at the lower pole are also roughly stable. No evidence of right hydronephrosis. No ureteric dilatation. There is a small calcification along the course of the right ureter measuring 5 mm, but unchanged since the prior study and probably extra ureteric. No evidence of left sided calculus or obstruction. No calcified gallstone. Aorta nonaneurysmal. No significant lymph node enlargement. No evidence of acute colitis. Mild retained stool in the colon. Appendix appears normal. No evidence of pneumoperitoneum or ascites. No evidence of a pelvic mass. Urinary bladder is not adequately distended for evaluation. Degenerative spondylosis of the spine. Appearance and alignment appears similar to the prior study. Mild anterolisthesis of L4 and L5. Degenerative changes at the skeletal pelvis. IMPRESSION: 1. Stable right renal calculi/calcifications. Small calcification along the course of the mid right ureter, probably extra ureteric as it was also seen previously and there is no proximal dilatation. No evidence of hydronephrosis or new calculus. 2. Mild hepatomegaly. Electronically signed by: Eleazar Enriquez MD (12/17/2018 3:03 PM) [id number] DICTATED and SIGNED BY: ELEAZAR ENRIQUEZ MD DATE: 12/17/18 1506 Course & Med Decision Making Course & Med Decision Making Pertinent Labs and Imaging studies reviewed. (See chart for details) Evaluation of patient in ER showed 58-year-old female patient was in by EMS because of right flank pain for 4 days without get better with taking hydrocodone given at [facility] with diagnosis of kidney stone. Patient was very anxious at arrival to ER. Labs was unremarkable. CT showed right nephrolithiasis without acute ureterolithiasis. Patient treated with IV fluid and Toradol and felt better and discharged home with prescription of Flexeril and Naprosyn. Dragon Disclaimer Dragon Disclaimer This electronic medical record was generated, in whole or in part, using a voice recognition dictation system. Departure Departure Impression: Primary Impression: Right flank pain Additional Impressions: Anxiety Nephrolithiasis Disposition: HOME, SELF-CARE (at 1552) Condition: IMPROVED Referrals: NO PCP (PCP) Patient Instructions: Muscle Strain Additional Instructions: Drink plenty of liquids Follow-up with your primary care physician in 3-5 days Return to ER if not getting better Apply ice on your back Scripts Naproxen (NAPROSYN) 500 Mg Tablet 1 TAB PO BID for pain, #20 TAB Prov: JUAN A JENNINGS MD 12/17/18 Cyclobenzaprine Hcl (CYCLOBENZAPRINE HCL) 10 Mg Tablet 1 TAB PO TID, #21 TAB Prov: JUAN A JENNINGS MD 12/17/18 Problem Qualifiers JUAN A JENNINGS MD Dec 17, 2018 15:54
[2018-12-17 16:01] VITALS: BP 160/79
== END 2018-12-17 15:59 | disposition home or self-care (01) ==
LOC: ER 13:55
DX: N20.0 Calculus of kidney (principal); F41.9 Anxiety disorder, unspecified; R16.0 Hepatomegaly, not elsewhere classified; J44.9 Chronic obstructive pulmonary disease, unspecified; E11.9 Type 2 diabetes mellitus without complications; K21.9 Gastro-esophageal reflux disease without esophagitis; I10 Essential (primary) hypertension; F17.200 Nicotine dependence, unspecified, uncomplicated; Z90.710 Acquired absence of both cervix and uterus
CPT/HCPCS: 36415; 74176; 80053; 80307; 81001; 83690; 85025; 96374; 99285; J1885; J7030

== ENCOUNTER 2019-01-07 23:37 | Inpatient (IN) | payer OTHER ==
[~2019-01-07] VITALS: Ht 167.6 cm; Wt 120.7 kg
[~2019-01-07 23:37] MED LIST changes: +NAPR-683 PO
[2019-01-08] MEDS ORDERED: IV NORMAL SALINE 500ML BAG 500 ML IV ONE
[2019-01-08 00:09] LABS: BASO # 0.1 x10^3/uL (0.0-0.2); BASO % 1 % (0-3); EOS % 0 % (0-3); HEMATOCRIT 36.3 % (36.0-47.0); HEMOGLOBIN 12.4 g/dL (12.0-15.5); LYMPH % 22 % (24-48); MEAN CORPUSCULAR HEMOGLOBIN 32 pg (25-35); MEAN CORPUSCULAR HGB CONC 34 g/dL (31-37); MEAN CORPUSCULAR VOLUME 93 fL (79-100); MONO # 1.9 x10^3/uL (0.0-1.1); MONO % 11 % (0-9); NEUT # 11.9 x10^3/uL (1.8-7.7); NEUT % 67 % (31-73); PLATELET COUNT 362 x10^3/uL (140-400); RED BLOOD COUNT 3.92 x10^6/uL (3.50-5.40); RED CELL DISTRIBUTION WIDTH 13.4 % (11.5-14.5); WHITE BLOOD COUNT 17.9 x10^3/uL (4.0-11.0)
[2019-01-08 00:40] LABS: % EOS 1 % (0-5); % LYMPHS 16 % (24-48); % MONOS 8 % (0-10); % SEGS 75 % (35-66); PLT ESTIMATE ADEQUATE (ADEQUATE); TOXIC VACUOLATION SLIGHT
[2019-01-08 00:42] LABS: CALCIUM 9.9 mg/dL (8.5-10.1); CREATININE 0.9 mg/dL (0.6-1.0); GFR 78.4
[2019-01-08 00:48] LABS: ALBUMIN 3.5 g/dL (3.4-5.0); ALBUMIN/GLOBULIN RATIO 0.8 (1.0-1.7); TOTAL BILIRUBIN 0.1 mg/dL (0.2-1.0); TOTAL PROTEIN 7.9 g/dL (6.4-8.2)
[2019-01-08 00:50] LABS: BILIRUBIN,URINE NEGATIVE (NEG); CLARITY,URINE CLEAR; COLOR,URINE YELLOW; NITRITE,URINE NEGATIVE (NEG); PH,URINE 5.5; PROTEIN,URINE NEGATIVE (NEG-TRACE); UROBILINOGEN,URINE 0.2 mg/dL (0.2 mg/dL)
[2019-01-08] MEDS ORDERED: IPRATRPIUM/ALBUTEROL 0.5/2.5MG 3 ML NEBU. NEB ONE (01:00)
[2019-01-08 01:06] LABS: SQUAMOUS EPITHELIAL CELL,UR MOD /LPF
[2019-01-08 01:07] LABS: BACTERIA,URINE 0 /HPF (0-FEW); WBC,URINE OCC /HPF (0-4)
--- NOTE | 2019-01-08 01:32 | RAD ---
EXAM: CHEST 1 VIEW History: Cough COMPARISON: 08/14/2018 TECHNIQUE: Single portable radiograph of the chest FINDINGS: The cardiac silhouette is unremarkable. The lungs are clear bilaterally. The costophrenic sulci are clear and well demarcated. IMPRESSION: No radiographic evidence of an acute cardiopulmonary process. Electronically signed by: Guevara Gamboa MD (01/08/2019 1:29 AM) [id number]
--- NOTE | 2019-01-08 01:46 | PHYS DOC ---
Past Medical History Past Medical History: Asthma, COPD, Diabetes-Type II, Hypertension Additional Past Medical Histor: FIBROID Past Surgical History: No Surgical History Additional Past Surgical Histo: HERNIA Additional Information: 1/2 PACK A DAY Alcohol Use: None Drug Use: None Adult General Chief Complaint Chief Complaint: SYNCOPE HPI HPI Patient is a 58 year old female presents brought in by ambulance after an episode of syncope she has been coughing for the last 3 days coughing more and more should witnessed syncopal event after coughing fit tonight that also happened 3 days ago as well patient does have occasional sputum but it's mostly a dry cough History of asthma COPD diabetes hypertension has taken prednisone on last day of it but does not seem to help Review of Systems Review of Systems Constitutional: Denies fever or chills [] Eyes: Denies change in visual acuity, redness, or eye pain [] HENT: Denies nasal congestion or sore throat [] Respiratory: Denies cough or shortness of breath [] Cardiovascular: No additional information not addressed in HPI [] GI: Denies abdominal pain, nausea, vomiting, bloody stools or diarrhea [] : Denies dysuria or hematuria [] Musculoskeletal: Denies back pain or joint pain [] Integument: Denies rash or skin lesions [] Neurologic: Denies headache, focal weakness or sensory changes [] Endocrine: Denies polyuria or polydipsia [] All other systems were reviewed and found to be within normal limits, except as documented in this note. Current Medications Current Medications Current Medications Medications (Trade) Dose Ordered Sig/Ayush Start Time Stop Time Status Last Admin Dose Admin Albuterol/ Ipratropium (Duoneb) 3 ml 1X ONCE 01/08/19 01:00 01/08/19 01:01 DC 01/08/19 00:49 3 ML Sodium Chloride 500 ml @ 500 mls/hr 1X ONCE 01/08/19 00:00 01/08/19 00:59 DC 01/08/19 00:19 500 MLS/HR Allergies Allergies Allergies Coded Allergies Type Severity Reaction Last Updated Verified No Known Drug Allergies 08/27/13 No Physical Exam Physical Exam Constitutional: Well developed, well nourished, no acute distress, non-toxic appearance. [] HENT: Normocephalic, atraumatic, bilateral external ears normal, oropharynx moist, no oral exudates, nose normal. [] Eyes: PERRLA, EOMI, conjunctiva normal, no discharge. [] Neck: Normal range of motion, no tenderness, supple, no stridor. [] Cardiovascular:Heart rate regular rhythm, no murmur [] Lungs & Thorax: Wheezing noted bilaterally persists after nebs in the emergency room Abdomen: Bowel sounds normal, soft, no tenderness, no masses, no pulsatile masses. [] Skin: Warm, dry, no erythema, no rash. [] Back: No tenderness, no CVA tenderness. [] Extremities: No tenderness, no cyanosis, no clubbing, ROM intact, no edema. [] Neurologic: Alert and oriented X 3, normal motor function, normal sensory function, no focal deficits noted. [] Psychologic: Affect normal, judgement normal, mood normal. [] Current Patient Data Vital Signs Vital Signs Date Time Temp Pulse Resp B/P (MAP) Pulse Ox O2 Delivery O2 Flow Rate FiO2 01/08/19 01:00 72 23 158/83 (108) Room Air 01/08/19 00:48 98 01/08/19 00:08 98.0 98.0 Lab Values Laboratory Tests Test 01/08/19 00:04 01/08/19 00:24 01/08/19 00:40 White Blood Count 17.9 x10^3/uL (4.0-11.0) H Red Blood Count 3.92 x10^6/uL (3.50-5.40) Hemoglobin 12.4 g/dL (12.0-15.5) Hematocrit 36.3 % (36.0-47.0) Mean Corpuscular Volume 93 fL (79-100) Mean Corpuscular Hemoglobin 32 pg (25-35) Mean Corpuscular Hemoglobin Concent 34 g/dL (31-37) Red Cell Distribution Width 13.4 % (11.5-14.5) Platelet Count 362 x10^3/uL (140-400) Neutrophils (%) (Auto) 67 % (31-73) Lymphocytes (%) (Auto) 22 % (24-48) L Monocytes (%) (Auto) 11 % (0-9) H Eosinophils (%) (Auto) 0 % (0-3) Basophils (%) (Auto) 1 % (0-3) Neutrophils # (Auto) 11.9 x10^3/uL (1.8-7.7) H Lymphocytes # (Auto) 4.0 x10^3/uL (1.0-4.8) Monocytes # (Auto) 1.9 x10^3/uL (0.0-1.1) H Eosinophils # (Auto) 0.0 x10^3/uL (0.0-0.7) Basophils # (Auto) 0.1 x10^3/uL (0.0-0.2) Segmented Neutrophils % 75 % (35-66) H Lymphocytes % 16 % (24-48) L Monocytes % 8 % (0-10) Eosinophils % 1 % (0-5) Toxic Vacuolation Slight Platelet Estimate Adequate (ADEQUATE) Sodium Level 141 mmol/L (136-145) Potassium Level 4.0 mmol/L (3.5-5.1) Chloride Level 104 mmol/L (98-107) Carbon Dioxide Level 30 mmol/L (21-32) Anion Gap 7 (6-14) Blood Urea Nitrogen 18 mg/dL (7-20) Creatinine 0.9 mg/dL (0.6-1.0) Estimated GFR (Cockcroft-Gault) 78.4 BUN/Creatinine Ratio 20 (6-20) Glucose Level 104 mg/dL (70-99) H Calcium Level 9.9 mg/dL (8.5-10.1) Total Bilirubin 0.1 mg/dL (0.2-1.0) L Aspartate Amino Transferase (AST) 19 U/L (15-37) Alanine Aminotransferase (ALT) 27 U/L (14-59) Alkaline Phosphatase 88 U/L (46-116) Troponin I Quantitative < 0.017 ng/mL (0.000-0.055) Total Protein 7.9 g/dL (6.4-8.2) Albumin 3.5 g/dL (3.4-5.0) Albumin/Globulin Ratio 0.8 (1.0-1.7) L Urine Collection Type Unknown Urine Color Yellow Urine Clarity Clear Urine pH 5.5 Urine Specific [place] 1.025 Urine Protein Negative mg/dL (NEG-TRACE) Urine Glucose (UA) Negative mg/dL (NEG) Urine Ketones (Stick) Negative mg/dL (NEG) Urine Blood Moderate (NEG) Urine Nitrite Negative (NEG) Urine Bilirubin Negative (NEG) Urine Urobilinogen Dipstick 0.2 mg/dL (0.2 mg/dL) Urine Leukocyte Esterase Negative (NEG) Urine RBC 6-10 /HPF (0-2) Urine WBC Occ /HPF (0-4) Urine Squamous Epithelial Cells Mod /LPF Urine Bacteria 0 /HPF (0-FEW) Urine Mucus Mod /LPF Laboratory Tests 01/08/19 00:04 Laboratory Tests 01/08/19 00:24 EKG EKG [] Interpretation Time: Normal sinus rhythm rate of 82 no acute ischemic changes noted interpreted by me the time of encounter Radiology/Procedures Radiology/Procedures [] Impressions: FINDINGS: The cardiac silhouette is unremarkable. The lungs are clear bilaterally. The costophrenic sulci are clear and well demarcated. IMPRESSION: No radiographic evidence of an acute cardiopulmonary process. Electronically signed by: Guevara Gamboa MD (01/08/2019 1:29 AM) [facility] DICTATED and SIGNED BY: GUEVARA GAMBOA MD DATE: 01/08/19 0129 Course & Med Decision Making Course & Med Decision Making Pertinent Labs and Imaging studies reviewed. (See chart for details) []58-year-old female history of COPD diabetes presenting with syncopal episode in the setting of frequent coughing. Patient has persistent wheezing despite ER treatment admission was requested admit to service of Dr. Kaufman usual treatment was given in the emergency room no evidence of sepsis no evidence of cardiac etiology of syncope at this time I think it was cough related mostly. noted leukocytosis no evidence of pna. urine neg for infection likely related to steroids that she took already Dragon Disclaimer Dragon Disclaimer This electronic medical record was generated, in whole or in part, using a voice recognition dictation system. Departure Departure Impression: Primary Impression: Asthma exacerbation Disposition: ADMITTED INPATIENT Admitting Physician: HIMS Condition: STABLE Referrals: NO PCP (PCP) ISH RAO MD Jan 08, 2019 01:46
[2019-01-08] MEDS ORDERED: DOXYCYCLINE HYCLATE 100 MG TABLET PO ONE (02:00)
[2019-01-08] MEDS ORDERED: guaiFENesin/CODEINE 100mg/10mg 5 ML LIQUID PO PRN (02:00)
[2019-01-08] MEDS ORDERED: ALBUTEROL SULFATE 2.5 MG/3 ML NEBU. NEB ONE (02:00)
[2019-01-08] MEDS ORDERED: cefTRIAXone IV Push 1 GM VIAL. IVP ONE (02:00)
[2019-01-08] MEDS: IV NORMAL SALINE 1000ML BAG 1,000 ML IV SCH ×2 (02:26→17:47)
[2019-01-08] MEDS ORDERED: methylPREDNISolone SOD SUCC PF 125 MG/2 ML VIAL. IV ONE (03:00)
[2019-01-08 04:00] VITALS: BP 131/54
[2019-01-08 07:00] VITALS: BP 129/66
--- NOTE | 2019-01-08 07:15 | EKG ---
[facility] [address] [place] [address] Test Date: 2019-01-07 Test Time: 23:44:32 Pat Name: PEDRO DUKE Department: Room: 6 Gender: F [employer]: : 1960 Requested By: ISH RAO Order Number: [id number] Reading MD: Alex Dawson MD Measurements Intervals [place] Rate: 82 P: 54 WV: 148 QRS: 26 QRSD: 100 T: 20 QT: 360 QTc: 424 Interpretive Statements SINUS RHYTHM Electronically Signed On 01-19-2019 10:00:43 CDT by Alex Dawson MD
--- NOTE | 2019-01-08 07:33 | PDOC1 ---
History and Physical Date of Admission Date of Admission DATE: 01/08/19 TIME: 07:33 Identification/Chief Complaint Chief Complaint seen in er , 58 year old female presents brought in by ambulance after an episode of syncope she has been coughing for the last 3 days coughing more and more should witnessed syncopal event after cough patient does have occasional sputum but it's mostly a dry cough History of asthma COPD diabetes hypertension Past Medical History Past Medical History PAST MEDICAL HISTORY: COPD, diabetes mellitus, hypertension, gastroesophageal reflux disease.obesity ALLERGIES: No known drug allergies. MEDICATIONS: losartan, insulin, Norvasc, aspirin, acyclovir, Protonix. SOCIAL HISTORY: History of 40 pack-year smoking, continues to smoke. FAMILY HISTORY: Hypertension. Cardiovascular: HTN, Hyperlipidemia Pulmonary: Asthma, COPD GI: No pertinent hx Heme/Onc: No pertinent hx Hepatobiliary: No pertinent hx Psych: No pertinent hx Rheumatologic: No pertinent hx Infectious disease: No pertinent hx Renal/: No pertinent hx Endocrine: Diabetes Past Surgical History Past Surgical History: Hysterectomy Family History Family History: Hypertension Social History Smoke: 1 pack per day ALCOHOL: occassional Drugs: None Current Problem List Problem List Problems Medical Problems: (1) Asthma exacerbation Status: Acute Current Medications Current Medications Current Medications Sodium Chloride 500 ml @ 500 mls/hr 1X ONCE IV Last administered on 01/08/19at 00:19; Start 01/08/19 at 00:00; Stop 01/08/19 at 00:59; Status DC Albuterol/ Ipratropium (Duoneb) 3 ml 1X ONCE NEB Last administered on 01/08/19at 00:49; Start 01/08/19 at 01:00; Stop 01/08/19 at 01:01; Status DC Albuterol Sulfate (Ventolin Neb Soln) 2.5 mg 1X ONCE NEB Last administered on 01/08/19at 01:49; Start 01/08/19 at 02:00; Stop 01/08/19 at 02:01; Status DC Ceftriaxone Sodium (Rocephin) 1 gm 1X ONCE IVP Last administered on 01/08/19at 02:26; Start 01/08/19 at 02:00; Stop 01/08/19 at 02:01; Status DC Doxycycline Hyclate (Vibra-Tab) 100 mg 1X ONCE PO Last administered on 01/08/19at 03:35; Start 01/08/19 at 02:00; Stop 01/08/19 at 02:01; Status DC Guaifenesin/ Codeine Phosphate (Robitussin Ac) 5 ml PRN Q6HRS PRN PO COUGH; Start 01/08/19 at 02:00 Sodium Chloride 1,000 ml @ 75 mls/hr [id number] IV Last administered on 01/08/19at 02:26; Start 01/08/19 at 02:00; Stop 01/09/19 at 01:59 Albuterol/ Ipratropium (Duoneb) 3 ml RTQID NEB ; Start 01/08/19 at 08:00; Stop 01/09/19 at 07:59 Methylprednisolone Sodium Succinate (SOLU-Medrol 125MG VIAL) 125 mg 1X ONCE IV Last administered on 01/08/19at 03:36; Start 01/08/19 at 03:00; Stop 01/08/19 at 03:01; Status DC Influenza Virus Vaccine Quadrival (Afluria Quad 2019-20 (3yr Up) Syringe) 0.5 ml ONCE ONCE VAX IM ; Start 01/08/19 at 09:00; Stop 01/08/19 at 09:01 Active Scripts Active Reported Ventolin Hfa Inhaler (Albuterol Sulfate) 18 Gm Hfa.aer.ad 2 Puff IH PRN Q4-6HRS Allergies Allergies: Coded Allergies: No Known Drug Allergies (Unverified , 08/27/13) ROS Review of System Review of Systems Review of Systems Constitutional: Denies fever or chills [] Eyes: Denies change in visual acuity, redness, or eye pain [] HENT: Denies nasal congestion or sore throat [] Respiratory: pos cough // shortness of breath [] Cardiovascular: No additional information not addressed in HPI [] GI: Denies abdominal pain, nausea, vomiting, bloody stools or diarrhea [] : Denies dysuria or hematuria [] Musculoskeletal: Denies back pain or joint pain [] Integument: Denies rash or skin lesions [] Neurologic: Denies headache, focal weakness or sensory changes [] Endocrine: Denies polyuria or polydipsia [] 14 pt systems were reviewed and found to be within normal limits, except as documented Physical Exam Physical Exam Physical Exam Physical Exam Constitutional: Well developed, well nourished, no acute distress, non-toxic appearance. [] HENT: Normocephalic, atraumatic, bilateral external ears normal, oropharynx moist, no oral exudates, nose normal. [] Eyes: PERRLA, EOMI, conjunctiva normal, no discharge. [] Neck: Normal range of motion, no tenderness, supple, no stridor. [] Cardiovascular:Heart rate regular rhythm, no murmur [] Lungs & Thorax: Wheezing noted bilaterally persists Abdomen: Bowel sounds normal, soft, no tenderness, no masses, no pulsatile masses. [] Skin: Warm, dry, no erythema, no rash. [] Back: No tenderness, no CVA tenderness. [] Extremities: No tenderness, no cyanosis, no clubbing, ROM intact, no edema. [] Neurologic: Alert and oriented X 3, normal motor function, normal sensory function, no focal deficits noted. [] Psychologic: Affect normal, judgement normal, mood normal. [] General: Alert, Oriented X3, Cooperative, No acute distress PELVIC: Examination not indicated Extremities: No cyanosis Neuro: Normal speech, Strength at 5/5 X4 ext, Sensation intact, Cranial nerves 3-12 NL Psych/Mental Status: Mental status NL, Mood NL Vitals Vitals Vital Signs Date Time Temp Pulse Resp B/P (MAP) Pulse Ox O2 Delivery O2 Flow Rate FiO2 01/08/19 04:00 97.5 69 18 131/54 (79) 97 Room Air 97.5 Labs Labs Laboratory Tests Test 01/08/19 00:04 01/08/19 00:24 01/08/19 00:40 White Blood Count 17.9 x10^3/uL (4.0-11.0) Red Blood Count 3.92 x10^6/uL (3.50-5.40) Hemoglobin 12.4 g/dL (12.0-15.5) Hematocrit 36.3 % (36.0-47.0) Mean Corpuscular Volume 93 fL (79-100) Mean Corpuscular Hemoglobin 32 pg (25-35) Mean Corpuscular Hemoglobin Concent 34 g/dL (31-37) Red Cell Distribution Width 13.4 % (11.5-14.5) Platelet Count 362 x10^3/uL (140-400) Neutrophils (%) (Auto) 67 % (31-73) Lymphocytes (%) (Auto) 22 % (24-48) Monocytes (%) (Auto) 11 % (0-9) Eosinophils (%) (Auto) 0 % (0-3) Basophils (%) (Auto) 1 % (0-3) Neutrophils # (Auto) 11.9 x10^3/uL (1.8-7.7) Lymphocytes # (Auto) 4.0 x10^3/uL (1.0-4.8) Monocytes # (Auto) 1.9 x10^3/uL (0.0-1.1) Eosinophils # (Auto) 0.0 x10^3/uL (0.0-0.7) Basophils # (Auto) 0.1 x10^3/uL (0.0-0.2) Segmented Neutrophils % 75 % (35-66) Lymphocytes % 16 % (24-48) Monocytes % 8 % (0-10) Eosinophils % 1 % (0-5) Toxic Vacuolation Slight Platelet Estimate Adequate (ADEQUATE) Sodium Level 141 mmol/L (136-145) Potassium Level 4.0 mmol/L (3.5-5.1) Chloride Level 104 mmol/L (98-107) Carbon Dioxide Level 30 mmol/L (21-32) Anion Gap 7 (6-14) Blood Urea Nitrogen 18 mg/dL (7-20) Creatinine 0.9 mg/dL (0.6-1.0) Estimated GFR (Cockcroft-Gault) 78.4 BUN/Creatinine Ratio 20 (6-20) Glucose Level 104 mg/dL (70-99) Calcium Level 9.9 mg/dL (8.5-10.1) Total Bilirubin 0.1 mg/dL (0.2-1.0) Aspartate Amino Transf (AST/SGOT) 19 U/L (15-37) Alanine Aminotransferase (ALT/SGPT) 27 U/L (14-59) Alkaline Phosphatase 88 U/L (46-116) Troponin I Quantitative < 0.017 ng/mL (0.000-0.055) Total Protein 7.9 g/dL (6.4-8.2) Albumin 3.5 g/dL (3.4-5.0) Albumin/Globulin Ratio 0.8 (1.0-1.7) Urine Collection Type Unknown Urine Color Yellow Urine Clarity Clear Urine pH 5.5 Urine Specific [place] 1.025 Urine Protein Negative mg/dL (NEG-TRACE) Urine Glucose (UA) Negative mg/dL (NEG) Urine Ketones (Stick) Negative mg/dL (NEG) Urine Blood Moderate (NEG) Urine Nitrite Negative (NEG) Urine Bilirubin Negative (NEG) Urine Urobilinogen Dipstick 0.2 mg/dL (0.2 mg/dL) Urine Leukocyte Esterase Negative (NEG) Urine RBC 6-10 /HPF (0-2) Urine WBC Occ /HPF (0-4) Urine Squamous Epithelial Cells Mod /LPF Urine Bacteria 0 /HPF (0-FEW) Urine Mucus Mod /LPF Laboratory Tests Test 01/08/19 00:04 01/08/19 00:24 01/08/19 00:40 White Blood Count 17.9 x10^3/uL (4.0-11.0) Red Blood Count 3.92 x10^6/uL (3.50-5.40) Hemoglobin 12.4 g/dL (12.0-15.5) Hematocrit 36.3 % (36.0-47.0) Mean Corpuscular Volume 93 fL (79-100) Mean Corpuscular Hemoglobin 32 pg (25-35) Mean Corpuscular Hemoglobin Concent 34 g/dL (31-37) Red Cell Distribution Width 13.4 % (11.5-14.5) Platelet Count 362 x10^3/uL (140-400) Neutrophils (%) (Auto) 67 % (31-73) Lymphocytes (%) (Auto) 22 % (24-48) Monocytes (%) (Auto) 11 % (0-9) Eosinophils (%) (Auto) 0 % (0-3) Basophils (%) (Auto) 1 % (0-3) Neutrophils # (Auto) 11.9 x10^3/uL (1.8-7.7) Lymphocytes # (Auto) 4.0 x10^3/uL (1.0-4.8) Monocytes # (Auto) 1.9 x10^3/uL (0.0-1.1) Eosinophils # (Auto) 0.0 x10^3/uL (0.0-0.7) Basophils # (Auto) 0.1 x10^3/uL (0.0-0.2) Segmented Neutrophils % 75 % (35-66) Lymphocytes % 16 % (24-48) Monocytes % 8 % (0-10) Eosinophils % 1 % (0-5) Toxic Vacuolation Slight Platelet Estimate Adequate (ADEQUATE) Sodium Level 141 mmol/L (136-145) Potassium Level 4.0 mmol/L (3.5-5.1) Chloride Level 104 mmol/L (98-107) Carbon Dioxide Level 30 mmol/L (21-32) Anion Gap 7 (6-14) Blood Urea Nitrogen 18 mg/dL (7-20) Creatinine 0.9 mg/dL (0.6-1.0) Estimated GFR (Cockcroft-Gault) 78.4 BUN/Creatinine Ratio 20 (6-20) Glucose Level 104 mg/dL (70-99) Calcium Level 9.9 mg/dL (8.5-10.1) Total Bilirubin 0.1 mg/dL (0.2-1.0) Aspartate Amino Transf (AST/SGOT) 19 U/L (15-37) Alanine Aminotransferase (ALT/SGPT) 27 U/L (14-59) Alkaline Phosphatase 88 U/L (46-116) Troponin I Quantitative < 0.017 ng/mL (0.000-0.055) Total Protein 7.9 g/dL (6.4-8.2) Albumin 3.5 g/dL (3.4-5.0) Albumin/Globulin Ratio 0.8 (1.0-1.7) Urine Collection Type Unknown Urine Color Yellow Urine Clarity Clear Urine pH 5.5 Urine Specific [place] 1.025 Urine Protein Negative mg/dL (NEG-TRACE) Urine Glucose (UA) Negative mg/dL (NEG) Urine Ketones (Stick) Negative mg/dL (NEG) Urine Blood Moderate (NEG) Urine Nitrite Negative (NEG) Urine Bilirubin Negative (NEG) Urine Urobilinogen Dipstick 0.2 mg/dL (0.2 mg/dL) Urine Leukocyte Esterase Negative (NEG) Urine RBC 6-10 /HPF (0-2) Urine WBC Occ /HPF (0-4) Urine Squamous Epithelial Cells Mod /LPF Urine Bacteria 0 /HPF (0-FEW) Urine Mucus Mod /LPF Images Images EXAM: CHEST 1 VIEW History: Cough COMPARISON: 08/14/2018 TECHNIQUE: Single portable radiograph of the chest FINDINGS: The cardiac silhouette is unremarkable. The lungs are clear bilaterally. The costophrenic sulci are clear and well demarcated. IMPRESSION: No radiographic evidence of an acute cardiopulmonary process. Electronically signed by: Guevara Gamboa MD (01/08/2019 1:29 AM) [facility] VTE Prophylaxis Ordered VTE Prophylaxis Devices: Yes VTE Pharmacological Prophylaxi: No Assessment/Plan Assessment/Plan Impression: copd exac, acute acute hypoxic resp failure Asthma exacerbation tobacco abuse disorder ADMITTED duone qid dvt prophylaxis tele home meds 57 min pt exam, chart review, > 50% of time spent with exam, chart review, pt care coordination MARYCARMEN RUIZ MD Jan 08, 2019 07:33
[2019-01-08] MEDS: IPRATRPIUM/ALBUTEROL 0.5/2.5MG 3 ML NEBU. NEB SCH ×3 (08:00→19:26)
[2019-01-08] MEDS ORDERED: FLU VAX QS 2019-20 (36MOS+)/PF 0.5 ML SYRINGE. VAX IM ONE (09:00)
[2019-01-08 11:14] VITALS: BP 131/56
--- NOTE | 2019-01-08 12:35 | NUR ---
SW following pt for dc planning. Chart reviewed and discussed with RN. Pt lives at home with alone. No SW needs noted.
[2019-01-08] MEDS ORDERED: guaiFENesin ORAL 200 MG/10 ML LIQUID. PO PRN (13:30)
[2019-01-08] MEDS ORDERED: 0.9 % SODIUM CHLORIDE 10 ML DISP.SYRIN. IV PRN (13:30)
[2019-01-08] MEDS ORDERED: ACETAMINOPHEN 325 MG TABLET. PO PRN (13:30)
[2019-01-08] MEDS ORDERED: DOCUSATE SODIUM 100 MG CAPSULE. PO PRN (13:30)
[2019-01-08] MEDS ORDERED: ONDANSETRON PF 4 MG/2 ML VIAL. IV PRN (13:30)
[2019-01-08] MEDS ORDERED: LORazepam 0.5 MG TABLET PO PRN (13:30)
[2019-01-08] MEDS ORDERED: cloNIDine HCL 0.1 MG TABLET PO PRN (13:30)
--- NOTE | 2019-01-08 14:53 | CONS ---
DATE OF CONSULTATION: PULMONARY CONSULTATION ATTENDING PHYSICIAN: Dr. Kaufman. REASON FOR CONSULTATION: Dyspnea. HISTORY OF PRESENT ILLNESS: The patient is 58 years old who has been a smoker since age 17. She started to have a cough with light green to yellow sputum production. From the coughing spell, she had a syncopal episode. The patient denied any fever, no chills. No headaches, no nausea, vomiting, no diarrhea, no dysuria, no focal weakness. Her chest x-ray did not reveal any acute infiltrates. PAST MEDICAL HISTORY: History of COPD, diabetes, hypertension, gastroesophageal reflux disease. PAST SURGICAL HISTORY: Surgeries are none recently. ALLERGIES: None. CURRENT MEDICATIONS: Reviewed as listed in the MRAD including IV antibiotics, Solu-Medrol, and DuoNeb. SOCIAL HISTORY: Smoker since age 17 and continues to smoke cigarettes. FAMILY HISTORY: Noncontributory to lungs. PHYSICAL EXAMINATION: VITAL SIGNS: On examination reviewed, afebrile, pulse ox 96% on room air. NECK: Supple. LUNGS: Diminished breath sounds. No wheezing. CARDIOVASCULAR: With a regular rate. ABDOMEN: Soft, obese. EXTREMITIES: With no pitting edema. LABORATORY DATA: Reviewed. White cell count 17.9, hemoglobin 12.4. BUN and creatinine are normal. IMPRESSION: 1. Dyspnea secondary to acute exacerbation of chronic obstructive pulmonary disease, triggered by acute bronchitis. 2. Long history of tobacco use since age 17 and continues to smoke cigarettes. 3. Underlying obesity. RECOMMENDATIONS: 1. Smoking cessation counseling provided. She agrees to quit cigarettes. 2. Continue present oral doxycycline along with IV Rocephin. 3. IV steroids with gradual taper. 4. Continue DuoNeb. 5. If clinically improves by tomorrow, she could be discharged home. ISELA MARTINEZ MD DR: LOULOU/olivier JOB#: [id number] / [id number]
[2019-01-08 15:00] VITALS: BP 117/66
[2019-01-08] MEDS: methylPREDNISolone SOD SUCC PF 125 MG/2 ML VIAL. IV SCH ×2 (17:46→22:48)
[2019-01-08] MEDS ORDERED: ALBUTEROL SULFATE 2.5 MG/3 ML NEBU. NEB PRN (19:00)
[2019-01-08] MEDS ORDERED: diphenhydrAMINE HCL 25 MG CAPSULE PO PRN (19:00)
[2019-01-08 19:30] VITALS: BP 116/56
[2019-01-08] MEDS ORDERED: cefTRIAXone IV Push 1 GM VIAL. IVP SCH (21:00)
[2019-01-08] MEDS ORDERED: traMADol 50 MG TABLET PO PRN (22:15)
[2019-01-08] MEDS: DICLOFENAC SODIUM 1% TOPICAL GEL 100GM TUBE. TP PRN (22:47)
[2019-01-08] MEDS: FAMOTIDINE 20 MG TABLET. PO SCH (22:48)
[2019-01-08] MEDS: DOXYCYCLINE HYCLATE 100 MG TABLET PO SCH (22:48)
[2019-01-08] MEDS: ENOXAPARIN 40 MG/0.4 ML SYRINGE. SQ SCH (22:49)
[2019-01-08 23:15] VITALS: BP 136/61
[2019-01-09 03:52] VITALS: BP 138/68
[2019-01-09] MEDS: methylPREDNISolone SOD SUCC PF 125 MG/2 ML VIAL. IV SCH (06:11)
[2019-01-09 07:00] VITALS: BP 144/79
[2019-01-09] MEDS: IPRATRPIUM/ALBUTEROL 0.5/2.5MG 3 ML NEBU. NEB SCH (07:15)
--- NOTE | 2019-01-09 08:07 | PDOC ---
PULMONARY PROGRESS NOTES Vitals Vital Signs Date Time Temp Pulse Resp B/P (MAP) Pulse Ox O2 Delivery O2 Flow Rate FiO2 01/09/19 07:15 100 Room Air 01/09/19 03:52 97.7 69 18 138/68 (91) 97.7 General: Alert, Oriented X4 HEENT: Other Lungs: Crackles, Other Cardiovascular: S1, S2 Abdomen: Soft, Non-tender Extremities: No Edema Labs Laboratory Tests Test 01/08/19 00:04 01/08/19 00:24 01/08/19 00:40 01/08/19 07:28 White Blood Count 17.9 x10^3/uL (4.0-11.0) Red Blood Count 3.92 x10^6/uL (3.50-5.40) Hemoglobin 12.4 g/dL (12.0-15.5) Hematocrit 36.3 % (36.0-47.0) Mean Corpuscular Volume 93 fL (79-100) Mean Corpuscular Hemoglobin 32 pg (25-35) Mean Corpuscular Hemoglobin Concent 34 g/dL (31-37) Red Cell Distribution Width 13.4 % (11.5-14.5) Platelet Count 362 x10^3/uL (140-400) Neutrophils (%) (Auto) 67 % (31-73) Lymphocytes (%) (Auto) 22 % (24-48) Monocytes (%) (Auto) 11 % (0-9) Eosinophils (%) (Auto) 0 % (0-3) Basophils (%) (Auto) 1 % (0-3) Neutrophils # (Auto) 11.9 x10^3/uL (1.8-7.7) Lymphocytes # (Auto) 4.0 x10^3/uL (1.0-4.8) Monocytes # (Auto) 1.9 x10^3/uL (0.0-1.1) Eosinophils # (Auto) 0.0 x10^3/uL (0.0-0.7) Basophils # (Auto) 0.1 x10^3/uL (0.0-0.2) Segmented Neutrophils % 75 % (35-66) Lymphocytes % 16 % (24-48) Monocytes % 8 % (0-10) Eosinophils % 1 % (0-5) Toxic Vacuolation Slight Platelet Estimate Adequate (ADEQUATE) Sodium Level 141 mmol/L (136-145) Potassium Level 4.0 mmol/L (3.5-5.1) Chloride Level 104 mmol/L (98-107) Carbon Dioxide Level 30 mmol/L (21-32) Anion Gap 7 (6-14) Blood Urea Nitrogen 18 mg/dL (7-20) Creatinine 0.9 mg/dL (0.6-1.0) Estimated GFR (Cockcroft-Gault) 78.4 BUN/Creatinine Ratio 20 (6-20) Glucose Level 104 mg/dL (70-99) Calcium Level 9.9 mg/dL (8.5-10.1) Total Bilirubin 0.1 mg/dL (0.2-1.0) Aspartate Amino Transf (AST/SGOT) 19 U/L (15-37) Alanine Aminotransferase (ALT/SGPT) 27 U/L (14-59) Alkaline Phosphatase 88 U/L (46-116) Troponin I Quantitative < 0.017 ng/mL (0.000-0.055) Total Protein 7.9 g/dL (6.4-8.2) Albumin 3.5 g/dL (3.4-5.0) Albumin/Globulin Ratio 0.8 (1.0-1.7) Urine Collection Type Unknown Urine Color Yellow Urine Clarity Clear Urine pH 5.5 Urine Specific [place] 1.025 Urine Protein Negative mg/dL (NEG-TRACE) Urine Glucose (UA) Negative mg/dL (NEG) Urine Ketones (Stick) Negative mg/dL (NEG) Urine Blood Moderate (NEG) Urine Nitrite Negative (NEG) Urine Bilirubin Negative (NEG) Urine Urobilinogen Dipstick 0.2 mg/dL (0.2 mg/dL) Urine Leukocyte Esterase Negative (NEG) Urine RBC 6-10 /HPF (0-2) Urine WBC Occ /HPF (0-4) Urine Squamous Epithelial Cells Mod /LPF Urine Bacteria 0 /HPF (0-FEW) Urine Mucus Mod /LPF Glucose (Fingerstick) 115 mg/dL (70-99) Test 01/08/19 11:00 01/08/19 17:45 01/08/19 20:47 Glucose (Fingerstick) 144 mg/dL (70-99) 109 mg/dL (70-99) 131 mg/dL (70-99) Laboratory Tests Test 01/08/19 11:00 01/08/19 17:45 01/08/19 20:47 Glucose (Fingerstick) 144 mg/dL (70-99) 109 mg/dL (70-99) 131 mg/dL (70-99) Medications Active Scripts Medications Dose Route/Sig Max Daily Dose Days Date Category Ventolin Hfa Inhaler (Albuterol Sulfate) 18 Gm Hfa.aer.ad 2 Puff IH PRN Q4-6HRS 08/03/14 Reported Impression . IMPRESSION: 1. Dyspnea secondary to acute exacerbation of chronic obstructive pulmonary disease, triggered by acute bronchitis. 2. Long history of tobacco use since age 17 and continues to smoke cigarettes. 3. Underlying obesity. Plan . RECOMMENDATIONS: 1. Smoking cessation counseling provided. She agrees to quit cigarettes. 2. Continue present oral doxycycline along with IV Rocephin. 3. change solumedrol to prednisone 40 mg daily by taper by 10 mg q 3d 4. Continue DuoNeb. 5. i do recommend sleep study as out pt, gucci the importance of diagnosis tx discussed discussed w pt BETTINA CORDERO MD Jan 09, 2019 08:07
--- NOTE | 2019-01-09 08:46 | PDOC ---
PROGRESS NOTES History of Present Illness History of Present Illness VTE Prophylaxis Ordered VTE Prophylaxis Devices: Yes VTE Pharmacological Prophylaxi: No discharge dx Assessment/Plan Impression: copd exac, acute, improved acute hypoxic resp failure Asthma exacerbation tobacco abuse disorder ADMITTED chika qid dvt prophylaxis tele home meds 27 min pt exam, chart review d/c planning , > 50% of time spent with exam, chart review, pt care coordination Vitals Vitals Vital Signs Date Time Temp Pulse Resp B/P (MAP) Pulse Ox O2 Delivery O2 Flow Rate FiO2 01/09/19 07:15 100 Room Air 01/09/19 07:00 97.7 74 18 144/79 (100) 97.7 Physical Exam General: Alert, Oriented X3, Cooperative, No acute distress Lungs: Crackles, Other Extremities: No cyanosis Labs LABS Laboratory Tests Test 01/08/19 11:00 01/08/19 17:45 01/08/19 20:47 01/09/19 07:46 Glucose (Fingerstick) 144 mg/dL (70-99) 109 mg/dL (70-99) 131 mg/dL (70-99) 153 mg/dL (70-99) Assessment and Plan Assessmemt and Plan Problems Medical Problems: (1) Asthma exacerbation Status: Acute Comment Review of Relevant I have reviewed the following items jackie (where applicable) has been applied. Labs Laboratory Tests Test 01/08/19 00:04 01/08/19 00:24 01/08/19 00:40 01/08/19 07:28 White Blood Count 17.9 x10^3/uL (4.0-11.0) Red Blood Count 3.92 x10^6/uL (3.50-5.40) Hemoglobin 12.4 g/dL (12.0-15.5) Hematocrit 36.3 % (36.0-47.0) Mean Corpuscular Volume 93 fL (79-100) Mean Corpuscular Hemoglobin 32 pg (25-35) Mean Corpuscular Hemoglobin Concent 34 g/dL (31-37) Red Cell Distribution Width 13.4 % (11.5-14.5) Platelet Count 362 x10^3/uL (140-400) Neutrophils (%) (Auto) 67 % (31-73) Lymphocytes (%) (Auto) 22 % (24-48) Monocytes (%) (Auto) 11 % (0-9) Eosinophils (%) (Auto) 0 % (0-3) Basophils (%) (Auto) 1 % (0-3) Neutrophils # (Auto) 11.9 x10^3/uL (1.8-7.7) Lymphocytes # (Auto) 4.0 x10^3/uL (1.0-4.8) Monocytes # (Auto) 1.9 x10^3/uL (0.0-1.1) Eosinophils # (Auto) 0.0 x10^3/uL (0.0-0.7) Basophils # (Auto) 0.1 x10^3/uL (0.0-0.2) Segmented Neutrophils % 75 % (35-66) Lymphocytes % 16 % (24-48) Monocytes % 8 % (0-10) Eosinophils % 1 % (0-5) Toxic Vacuolation Slight Platelet Estimate Adequate (ADEQUATE) Sodium Level 141 mmol/L (136-145) Potassium Level 4.0 mmol/L (3.5-5.1) Chloride Level 104 mmol/L (98-107) Carbon Dioxide Level 30 mmol/L (21-32) Anion Gap 7 (6-14) Blood Urea Nitrogen 18 mg/dL (7-20) Creatinine 0.9 mg/dL (0.6-1.0) Estimated GFR (Cockcroft-Gault) 78.4 BUN/Creatinine Ratio 20 (6-20) Glucose Level 104 mg/dL (70-99) Calcium Level 9.9 mg/dL (8.5-10.1) Total Bilirubin 0.1 mg/dL (0.2-1.0) Aspartate Amino Transf (AST/SGOT) 19 U/L (15-37) Alanine Aminotransferase (ALT/SGPT) 27 U/L (14-59) Alkaline Phosphatase 88 U/L (46-116) Troponin I Quantitative < 0.017 ng/mL (0.000-0.055) Total Protein 7.9 g/dL (6.4-8.2) Albumin 3.5 g/dL (3.4-5.0) Albumin/Globulin Ratio 0.8 (1.0-1.7) Urine Collection Type Unknown Urine Color Yellow Urine Clarity Clear Urine pH 5.5 Urine Specific [place] 1.025 Urine Protein Negative mg/dL (NEG-TRACE) Urine Glucose (UA) Negative mg/dL (NEG) Urine Ketones (Stick) Negative mg/dL (NEG) Urine Blood Moderate (NEG) Urine Nitrite Negative (NEG) Urine Bilirubin Negative (NEG) Urine Urobilinogen Dipstick 0.2 mg/dL (0.2 mg/dL) Urine Leukocyte Esterase Negative (NEG) Urine RBC 6-10 /HPF (0-2) Urine WBC Occ /HPF (0-4) Urine Squamous Epithelial Cells Mod /LPF Urine Bacteria 0 /HPF (0-FEW) Urine Mucus Mod /LPF Glucose (Fingerstick) 115 mg/dL (70-99) Test 01/08/19 11:00 01/08/19 17:45 01/08/19 20:47 01/09/19 07:46 Glucose (Fingerstick) 144 mg/dL (70-99) 109 mg/dL (70-99) 131 mg/dL (70-99) 153 mg/dL (70-99) Laboratory Tests Test 01/08/19 11:00 01/08/19 17:45 01/08/19 20:47 01/09/19 07:46 Glucose (Fingerstick) 144 mg/dL (70-99) 109 mg/dL (70-99) 131 mg/dL (70-99) 153 mg/dL (70-99) Medications Current Medications Sodium Chloride 500 ml @ 500 mls/hr 1X ONCE IV Last administered on 01/08/19at 00:19; Start 01/08/19 at 00:00; Stop 01/08/19 at 00:59; Status DC Albuterol/ Ipratropium (Duoneb) 3 ml 1X ONCE NEB Last administered on 01/08/19at 00:49; Start 01/08/19 at 01:00; Stop 01/08/19 at 01:01; Status DC Albuterol Sulfate (Ventolin Neb Soln) 2.5 mg 1X ONCE NEB Last administered on 01/08/19at 01:49; Start 01/08/19 at 02:00; Stop 01/08/19 at 02:01; Status DC Ceftriaxone Sodium (Rocephin) 1 gm 1X ONCE IVP Last administered on 01/08/19at 02:26; Start 01/08/19 at 02:00; Stop 01/08/19 at 02:01; Status DC Doxycycline Hyclate (Vibra-Tab) 100 mg 1X ONCE PO Last administered on 01/08/19at 03:35; Start 01/08/19 at 02:00; Stop 01/08/19 at 02:01; Status DC Guaifenesin/ Codeine Phosphate (Robitussin Ac) 5 ml PRN Q6HRS PRN PO COUGH Last administered on 01/08/19at 22:48; Start 01/08/19 at 02:00 Sodium Chloride 1,000 ml @ 75 mls/hr [id number] IV Last administered on 01/08/19at 17:47; Start 01/08/19 at 02:00; Stop 01/09/19 at 01:59; Status DC Albuterol/ Ipratropium (Duoneb) 3 ml RTQID NEB Last administered on 01/09/19at 07:15; Start 01/08/19 at 08:00; Stop 01/09/19 at 07:59; Status DC Methylprednisolone Sodium Succinate (SOLU-Medrol 125MG VIAL) 125 mg 1X ONCE IV Last administered on 01/08/19at 03:36; Start 01/08/19 at 03:00; Stop 01/08/19 at 03:01; Status DC Influenza Virus Vaccine Quadrival (Afluria Quad 2019-20 (3yr Up) Syringe) 0.5 ml ONCE ONCE VAX IM Last administered on 01/08/19at 10:29; Start 01/08/19 at 09:00; Stop 01/08/19 at 09:01; Status DC Ceftriaxone Sodium (Rocephin) 1 gm Q24H IVP Last administered on 01/08/19at 22:48; Start 01/08/19 at 21:00 Doxycycline Hyclate (Vibra-Tab) 100 mg BID PO Last administered on 01/08/19at 22 :48; Start 01/08/19 at 21:00 Methylprednisolone Sodium Succinate (SOLU-Medrol 125MG VIAL) 125 mg Q8HRS IV Last administered on 01/09/19at 06:11; Start 01/08/19 at 14:00; Stop 01/09/19 at 08:08; Status DC Sodium Chloride (Normal Saline Flush) 3 ml QSHIFT PRN IV AFTER MEDS AND BLOOD DRAWS; Start 01/08/19 at 13:30 Ondansetron HCl (Zofran) 4 mg PRN Q4HRS PRN IV NAUSEA/VOMITING; Start 01/08/19 at 13:30 Acetaminophen (Tylenol) 650 mg PRN Q4HRS PRN PO TEMP OVER 100.4F OR MILD PAIN; Start 01/08/19 at 13:30 Clonidine HCl (Catapres) 0.1 mg PRN Q6HRS PRN PO SBP>160 OR DBP>90; Start 01/08/19 at 13:30 Docusate Sodium (Colace) 100 mg PRN BID PRN PO CONSTIPATION; Start 01/08/19 at 13:30 Guaifenesin (Robitussin) 200 mg PRN Q4HRS PRN PO COUGH; Start 01/08/19 at 13:30 Lorazepam (Ativan) 0.5 mg PRN Q4HRS PRN PO ANXIETY / AGITATION; Start 01/08/19 at 13:30 Enoxaparin Sodium (Lovenox 40mg Syringe) 40 mg Q12HR SQ Last administered on 01/08/19at 22:49; Start 01/08/19 at 21:00 Famotidine (Pepcid) 20 mg BID PO Last administered on 01/08/19at 22:48; Start 01/08/19 at 21:00 Albuterol Sulfate (Ventolin Neb Soln) 2.5 mg PRN Q4HRS PRN NEB SHORTNESS OF RAJNI ATH; Start 01/08/19 at 19:00 Diphenhydramine HCl (Benadryl) 25 mg PRN QHS PRN PO INSOMNIA; Start 01/08/19 at 19:00 Tramadol HCl (Ultram) 50 mg PRN Q6HRS PRN PO MODERATE PAIN 4-6 Last administered on 01/08/19at 22:48; Start 01/08/19 at 22:15 Diclofenac Sodium (Voltaren) 1 [place] PRN TID PRN TP MUSCLE PAIN Last administered on 01/08/19at 22:47; Start 01/08/19 at 22:15 Prednisone (Prednisone) 40 mg DAILY PO ; Start 01/09/19 at 09:00 Active Scripts Active Reported Ventolin Hfa Inhaler (Albuterol Sulfate) 18 Gm Hfa.aer.ad 2 Puff IH PRN Q4-6HRS Vitals/I & O Vital Sign - Last 24 Hours 01/08/19 01/08/19 01/08/19 01/08/19 11:14 11:55 15:00 15:47 Temp 98.0 97.8 98.0 97.8 Pulse 74 83 Resp 18 18 B/P (MAP) 131/56 (81) 117/66 (83) Pulse Ox 96 97 O2 Delivery Room Air Room Air Room Air Room Air 01/08/19 01/08/19 01/08/19 01/08/19 19:27 19:30 20:06 22:48 Temp 98.9 98.9 Pulse 72 Resp 20 B/P (MAP) 116/56 (76) Pulse Ox 100 100 O2 Delivery Room Air Room Air Room Air Room Air 01/08/19 01/08/19 01/09/19 01/09/19 23:15 23:53 03:52 07:00 Temp 98.7 97.7 97.7 98.7 97.7 97.7 Pulse 71 69 74 Resp 18 18 18 B/P (MAP) 136/61 (86) 138/68 (91) 144/79 (100) Pulse Ox 94 93 96 O2 Delivery Room Air Room Air Room Air Room Air 01/09/19 07:15 Pulse Ox 100 O2 Delivery Room Air Intake and Output 01/08/19 01/08/19 01/09/19 14:59 22:59 06:59 Intake Total 760 ml 590 ml 0 ml Balance 760 ml 590 ml 0 ml MARYCARMEN RUIZ MD Jan 09, 2019 08:46
[2019-01-09] MEDS ORDERED: predniSONE 20 MG TABLET PO SCH (09:00)
[2019-01-09] MEDS: DOXYCYCLINE HYCLATE 100 MG TABLET PO SCH (09:06)
[2019-01-09] MEDS: FAMOTIDINE 20 MG TABLET. PO SCH (09:06)
[2019-01-09] MEDS: ENOXAPARIN 40 MG/0.4 ML SYRINGE. SQ SCH (09:07)
[2019-01-09] MEDS: DICLOFENAC SODIUM 1% TOPICAL GEL 100GM TUBE. TP PRN (09:11)
[2019-01-09 11:00] VITALS: BP 151/71
--- NOTE | 2019-01-09 12:50 | PDOC3 ---
Discharge Summary Date of Admission: Jan 08, 2019 Date of Discharge: Jan 09, 2019 Follow-Up: 3-5 days Admitting Diagnosis comment: ischarge dx Assessment/Plan Impression: copd exac, acute, improved acute hypoxic resp failure Asthma exacerbation tobacco abuse disorder ADMITTED chika qid dvt prophylaxis tele home meds 27 min pt exam, chart review d/c planning , > 50% of time spent with exam, chart review, pt care coordination Vitals Vitals Vital Signs Date Time Temp Pulse Resp B/P (MAP) Pulse Ox O2 Delivery O2 Flow Rate FiO2 01/09/19 07:15 100 Room Air 01/09/19 07:00 97.7 74 18 144/79 (100) 97.7 Physical Exam General: Alert, Oriented X3, Cooperative, No acute distress Lungs: cta , Extremities: No cyanosis FINAL DIAGNOSIS Problems Medical Problems: (1) Asthma exacerbation Status: Acute Brief Hospital Course Ms. Benitez is a 58 old [sex] who presented with [ copd exac] CONDITION AT DISCHARGE: Improved Discharge Medications Current Medications Sodium Chloride 500 ml @ 500 mls/hr 1X ONCE IV Last administered on 01/08/19at 00:19; Start 01/08/19 at 00:00; Stop 01/08/19 at 00:59; Status DC Albuterol/ Ipratropium (Duoneb) 3 ml 1X ONCE NEB Last administered on 01/08/19at 00:49; Start 01/08/19 at 01:00; Stop 01/08/19 at 01:01; Status DC Albuterol Sulfate (Ventolin Neb Soln) 2.5 mg 1X ONCE NEB Last administered on 01/08/19at 01:49; Start 01/08/19 at 02:00; Stop 01/08/19 at 02:01; Status DC Ceftriaxone Sodium (Rocephin) 1 gm 1X ONCE IVP Last administered on 01/08/19at 02:26; Start 01/08/19 at 02:00; Stop 01/08/19 at 02:01; Status DC Doxycycline Hyclate (Vibra-Tab) 100 mg 1X ONCE PO Last administered on 01/08/19at 03:35; Start 01/08/19 at 02:00; Stop 01/08/19 at 02:01; Status DC Guaifenesin/ Codeine Phosphate (Robitussin Ac) 5 ml PRN Q6HRS PRN PO COUGH Last administered on 01/08/19at 22:48; Start 01/08/19 at 02:00 Sodium Chloride 1,000 ml @ 75 mls/hr [id number] IV Last administered on 01/08/19at 17:47; Start 01/08/19 at 02:00; Stop 01/09/19 at 01:59; Status DC Albuterol/ Ipratropium (Duoneb) 3 ml RTQID NEB Last administered on 01/09/19at 07:15; Start 01/08/19 at 08:00; Stop 01/09/19 at 07:59; Status DC Methylprednisolone Sodium Succinate (SOLU-Medrol 125MG VIAL) 125 mg 1X ONCE IV Last administered on 01/08/19at 03:36; Start 01/08/19 at 03:00; Stop 01/08/19 at 03:01; Status DC Influenza Virus Vaccine Quadrival (Afluria Quad 2019-20 (3yr Up) Syringe) 0.5 ml ONCE ONCE VAX IM Last administered on 01/08/19at 10:29; Start 01/08/19 at 09:00; Stop 01/08/19 at 09:01; Status DC Ceftriaxone Sodium (Rocephin) 1 gm Q24H IVP Last administered on 01/08/19at 22:48; Start 01/08/19 at 21:00 Doxycycline Hyclate (Vibra-Tab) 100 mg BID PO Last administered on 01/09/19at 09:06; Start 01/08/19 at 21:00 Methylprednisolone Sodium Succinate (SOLU-Medrol 125MG VIAL) 125 mg Q8HRS IV Last administered on 01/09/19at 06:11; Start 01/08/19 at 14:00; Stop 01/09/19 at 08:08; Status DC Sodium Chloride (Normal Saline Flush) 3 ml QSHIFT PRN IV AFTER MEDS AND BLOOD DRAWS; Start 01/08/19 at 13:30 Ondansetron HCl (Zofran) 4 mg PRN Q4HRS PRN IV NAUSEA/VOMITING; Start 01/08/19 at 13:30 Acetaminophen (Tylenol) 650 mg PRN Q4HRS PRN PO TEMP OVER 100.4F OR MILD PAIN; Start 01/08/19 at 13:30 Clonidine HCl (Catapres) 0.1 mg PRN Q6HRS PRN PO SBP>160 OR DBP>90; Start 01/08/19 at 13:30 Docusate Sodium (Colace) 100 mg PRN BID PRN PO CONSTIPATION; Start 01/08/19 at 13:30 Guaifenesin (Robitussin) 200 mg PRN Q4HRS PRN PO COUGH; Start 01/08/19 at 13:30 Lorazepam (Ativan) 0.5 mg PRN Q4HRS PRN PO ANXIETY / AGITATION; Start 01/08/19 at 13:30 Enoxaparin Sodium (Lovenox 40mg Syringe) 40 mg Q12HR SQ Last administered on 01/09/19at 09:07; Start 01/08/19 at 21:00 Famotidine (Pepcid) 20 mg BID PO Last administered on 01/09/19at 09:06; Start 01/08/19 at 21:00 Albuterol Sulfate (Ventolin Neb Soln) 2.5 mg PRN Q4HRS PRN NEB SHORTNESS OF BREATH; Start 01/08/19 at 19:00 Diphenhydramine HCl (Benadryl) 25 mg PRN QHS PRN PO INSOMNIA; Start 01/08/19 at 19:00 Tramadol HCl (Ultram) 50 mg PRN Q6HRS PRN PO MODERATE PAIN 4-6 Last administered on 01/08/19at 22:48; Start 01/08/19 at 22:15 Diclofenac Sodium (Voltaren) 1 [place] PRN TID PRN TP MUSCLE PAIN Last administered on 01/09/19at 09:11; Start 01/08/19 at 22:15 Prednisone (Prednisone) 40 mg DAILY PO Last administered on 01/09/19at 09:08; Start 01/09/19 at 09:00 Lactobacillus Rhamnosus (Culturelle) 1 cap BID PO ; Start 01/09/19 at 21:00 Active Scripts Active Reported Ventolin Hfa Inhaler (Albuterol Sulfate) 18 Gm Hfa.aer.ad 2 Puff IH PRN Q4-6HRS Vital Signs Vital Signs Date Time Temp Pulse Resp B/P (MAP) Pulse Ox O2 Delivery O2 Flow Rate FiO2 01/09/19 11:42 98 Room Air 01/09/19 07:00 97.7 74 18 144/79 (100) 97.7 Labs Laboratory Tests Test 01/08/19 00:04 01/08/19 00:24 01/08/19 00:40 01/08/19 07:28 White Blood Count 17.9 x10^3/uL (4.0-11.0) Red Blood Count 3.92 x10^6/uL (3.50-5.40) Hemoglobin 12.4 g/dL (12.0-15.5) Hematocrit 36.3 % (36.0-47.0) Mean Corpuscular Volume 93 fL (79-100) Mean Corpuscular Hemoglobin 32 pg (25-35) Mean Corpuscular Hemoglobin Concent 34 g/dL (31-37) Red Cell Distribution Width 13.4 % (11.5-14.5) Platelet Count 362 x10^3/uL (140-400) Neutrophils (%) (Auto) 67 % (31-73) Lymphocytes (%) (Auto) 22 % (24-48) Monocytes (%) (Auto) 11 % (0-9) Eosinophils (%) (Auto) 0 % (0-3) Basophils (%) (Auto) 1 % (0-3) Neutrophils # (Auto) 11.9 x10^3/uL (1.8-7.7) Lymphocytes # (Auto) 4.0 x10^3/uL (1.0-4.8) Monocytes # (Auto) 1.9 x10^3/uL (0.0-1.1) Eosinophils # (Auto) 0.0 x10^3/uL (0.0-0.7) Basophils # (Auto) 0.1 x10^3/uL (0.0-0.2) Segmented Neutrophils % 75 % (35-66) Lymphocytes % 16 % (24-48) Monocytes % 8 % (0-10) Eosinophils % 1 % (0-5) Toxic Vacuolation Slight Platelet Estimate Adequate (ADEQUATE) Sodium Level 141 mmol/L (136-145) Potassium Level 4.0 mmol/L (3.5-5.1) Chloride Level 104 mmol/L (98-107) Carbon Dioxide Level 30 mmol/L (21-32) Anion Gap 7 (6-14) Blood Urea Nitrogen 18 mg/dL (7-20) Creatinine 0.9 mg/dL (0.6-1.0) Estimated GFR (Cockcroft-Gault) 78.4 BUN/Creatinine Ratio 20 (6-20) Glucose Level 104 mg/dL (70-99) Calcium Level 9.9 mg/dL (8.5-10.1) Total Bilirubin 0.1 mg/dL (0.2-1.0) Aspartate Amino Transf (AST/SGOT) 19 U/L (15-37) Alanine Aminotransferase (ALT/SGPT) 27 U/L (14-59) Alkaline Phosphatase 88 U/L (46-116) Troponin I Quantitative < 0.017 ng/mL (0.000-0.055) Total Protein 7.9 g/dL (6.4-8.2) Albumin 3.5 g/dL (3.4-5.0) Albumin/Globulin Ratio 0.8 (1.0-1.7) Urine Collection Type Unknown Urine Color Yellow Urine Clarity Clear Urine pH 5.5 Urine Specific [place] 1.025 Urine Protein Negative mg/dL (NEG-TRACE) Urine Glucose (UA) Negative mg/dL (NEG) Urine Ketones (Stick) Negative mg/dL (NEG) Urine Blood Moderate (NEG) Urine Nitrite Negative (NEG) Urine Bilirubin Negative (NEG) Urine Urobilinogen Dipstick 0.2 mg/dL (0.2 mg/dL) Urine Leukocyte Esterase Negative (NEG) Urine RBC 6-10 /HPF (0-2) Urine WBC Occ /HPF (0-4) Urine Squamous Epithelial Cells Mod /LPF Urine Bacteria 0 /HPF (0-FEW) Urine Mucus Mod /LPF Glucose (Fingerstick) 115 mg/dL (70-99) Test 01/08/19 11:00 01/08/19 17:45 01/08/19 20:47 01/09/19 07:46 Glucose (Fingerstick) 144 mg/dL (70-99) 109 mg/dL (70-99) 131 mg/dL (70-99) 153 mg/dL (70-99) Laboratory Tests Test 01/08/19 17:45 01/08/19 20:47 01/09/19 07:46 Glucose (Fingerstick) 109 mg/dL (70-99) 131 mg/dL (70-99) 153 mg/dL (70-99) Allergies Allergies Coded Allergies Type Severity Reaction Last Updated Verified No Known Drug Allergies 08/27/13 No Disposition/Orders: D/C to Home Patient Instructions d/c planning 27 min MARYCARMEN RUIZ MD Jan 09, 2019 12:50
[2019-01-09] MEDS ORDERED: DOXY100T PO (12:54)
[2019-01-09] MEDS ORDERED: GUAI100L12 PO (12:54)
[2019-01-09] MEDS ORDERED: ACET325T9 PO (12:54)
[2019-01-09] MEDS ORDERED: PRED20TA PO (12:54)
[2019-01-09] MEDS ORDERED: LACT1CAP19 PO (12:54)
--- NOTE | 2019-01-09 12:55 | DISCH ---
DISCHARGE INSTRUCTIONS Condition on Discharge Condition on Discharge: Stable Activity After Discharge Activity Instructions for Disc: Activity as tolerated Bathing Instructions: No Tub Bath until see Lifting Instructions after Dis: No heavy lifting, No pulling or pushing, Do not lift >10 pounds Exercise Instruction after Dis: Exercise per therapy Driving Instructions after Dis: Do not drive today Weight Bearing Status after Di: As tolerated Diet after Discharge Diet after Discharge: Diabetic No Calorie Level Diet Texture: Regular Swallowing Supervision: None needed Checks after Discharge Checks after discharge: Check blood press - daily, Check blood sugar, ac/hs Contacting the DRLucien after DC Call your doctor for: If your condition worsens Treatment/Equipment after DC Adaptive Equipment Issued: None MARYCARMEN RUIZ MD Jan 09, 2019 12:55
--- NOTE | 2019-01-09 13:55 | NUR ---
Discharge teaching done with pt. Scripts handed to pt and albuterol called to [facility] pharmacy. Pt walked out with transportation provided by family.
[2019-01-09] MEDS ORDERED: LACTOBACILLUS RHAMNOSUS GG 1 CAPSULE. PO SCH (21:00)
== END 2019-01-09 13:45 | disposition home or self-care (01) | DRG 189 ==
LOC: ER 23:37 → 6 SOUTH 01-08 01:40
PROVIDERS: ADMIT Family Medicine; ATTEND Family Medicine
DX: J96.01 Acute respiratory failure with hypoxia (principal); J44.0 Chronic obstructive pulmonary disease with (acute) lower respiratory infection; J44.1 Chronic obstructive pulmonary disease with (acute) exacerbation; J45.901 Unspecified asthma with (acute) exacerbation; Z68.41 Body mass index [BMI] 40.0-44.9, adult; E11.9 Type 2 diabetes mellitus without complications; E66.9 Obesity, unspecified; F17.210 Nicotine dependence, cigarettes, uncomplicated; I10 Essential (primary) hypertension; J20.9 Acute bronchitis, unspecified; K21.9 Gastro-esophageal reflux disease without esophagitis; Z82.49 Family history of ischemic heart disease and other diseases of the circulatory system; Z82.5 Family history of asthma and other chronic lower respiratory diseases; Z83.3 Family history of diabetes mellitus; Z90.710 Acquired absence of both cervix and uterus
CPT/HCPCS: 36415; 71045; 80053; 81001; 82962; 84484; 85007; 85025; 90471; 90686; 93005; 94640; 94760; 96361; 96374; 96375; J0696; J1650; J2930; J7030; J7040; J7512; J7613; J7620; 99285-25; G0378

== ENCOUNTER 2019-12-21 04:06 | Observation (INO) | payer MEDICAID, OTHER ==
[~2019-12-21] VITALS: Ht 172.7 cm; Wt 130.0 kg
[~2019-12-21 04:06] MED LIST changes: +ACET325T9 PO; +DOXY100T PO; +GUAI100L12 PO; +LACT1CAP19 PO; +OXYB-36 PO; -OXYB5TAB2 PO
[2019-12-21] MEDS ORDERED: methylPREDNISolone SOD SUCC PF 125 MG/2 ML VIAL. IV ONE (04:15)
[2019-12-21] MEDS ORDERED: IPRATRPIUM/ALBUTEROL 0.5/2.5MG 3 ML NEBU. NEB ONE (04:15)
--- NOTE | 2019-12-21 04:20 | PHYS DOC ---
Past Medical History Past Medical History: Asthma, COPD, Diabetes-Type II, Hypertension Additional Past Medical Histor: FIBROID Past Surgical History: No Surgical History Additional Past Surgical Histo: HERNIA Smoking Status: Current Some Day Smoker Alcohol Use: None Drug Use: None General Adult EDM: Chief Complaint: DYSPNEA/RESPIRATOY DISTRESS HPI: HPI: Patient is a 59 year old female presents with a past medical history history of COPD hypertension presents with a chief complaint of shortness of breath. Patient states she has had shortness of breath wheezing associated with cough for 3 days progressively coming worse. Patient states she has been taking her home treatments with minimal relief. Patient denies any associated fevers or chills. Review of Systems: Review of Systems: Constitutional: Denies fever or chills. [] Eyes: Denies change in visual acuity. [] HENT: Denies nasal congestion or sore throat. [] Respiratory: Positive cough positive shortness of breath Cardiovascular: Denies chest pain or edema. [] GI: Denies abdominal pain, nausea, vomiting, bloody stools or diarrhea. [] : Denies dysuria. [] Musculoskeletal: Denies back pain or joint pain. [] Integument: Denies rash. [] Neurologic: Denies headache, focal weakness or sensory changes. [] Endocrine: Denies polyuria or polydipsia. [] Lymphatic: Denies swollen glands. [] Psychiatric: Denies depression or anxiety. [] Heart Score: Risk Factors: Risk Factors: DM, Current or recent (<one month) smoker, HTN, HLP, family history of CAD, obesity. Risk Scores: Score 0 - 3: 2.5% MACE over next 6 weeks - Discharge Home Score 4 - 6: 20.3% MACE over next 6 weeks - Admit for Clinical Observation Score 7 - 10: 72.7% MACE over next 6 weeks - Early Invasive Strategies Current Medications: Current Medications Medications (Trade) Dose Ordered Sig/Ayush Start Time Stop Time Status Last Admin Dose Admin Albuterol/ Ipratropium (Duoneb) 3 ml 1X ONCE 12/21/19 04:15 12/21/19 04:16 DC Methylprednisolone Sodium Succinate (SOLU-Medrol 125MG VIAL) 125 mg 1X ONCE 12/21/19 04:15 12/21/19 04:16 DC Allergies: Allergies: Allergies Coded Allergies Type Severity Reaction Last Updated Verified No Known Drug Allergies 08/27/13 No Physical Exam: PE: General: alert, no acute distress. Skin: warm, dry and intact. Head:: Normocephalic, atraumatic. Neck: Trachea midline. Eyes: EOMI, Normal conjunctiva, No drainage CARDIOVASCULAR: Regular rate and rhythm RESPIRATORY: Wheezing diffuse tachypneic Back: Full range of motion. MUSCULOSKELETAL: Full range of motion of bilateral upper and lower extremities. GASTROINTESTINAL: Abdomen soft without rebound or guarding. NEUROLOGICAL: Alert and noted to person, place and time. No neurological deficits observed Psychiatric: Cooperative. Normal judgment EKG: EKG: [] EKG performed at 413 hours. Heart rate [address] elevation no ST depression no acute CA Radiology/Procedures: Radiology/Procedures: [] Impression: Chest x-ray no focal infiltrates Course & Med Decision Making: Course & Med Decision Making Pertinent Labs and Imaging studies reviewed. (See chart for details) [] Patient was treated with Solu-Medrol and DuoNeb. Reevaluation at 525 wheezing mildly improved will add hour-long albuterol treatment. ABG pending. COVID swab drawn. Patient will be admitted to the hospital for further evaluation and treatment. Abi Disclaimer: Abi Disclaimer: This electronic medical record was generated, in whole or in part, using a voice recognition dictation system. Departure Departure Impression: Primary Impression: Asthma exacerbation Additional Impression: COPD exacerbation Disposition: ADMITTED INPATIENT Admitting Physician: DOUG Referrals: NO PCP (PCP) Justicifation of Admission Dx: Justifications for Admission: Justification of Admission Dx: N/A NATALIIA CUMMINS DO Dec 21, 2019 04:20
[2019-12-21 04:33] LABS: BASO # 0.1 x10^3/uL (0.0-0.2); BASO % 1 % (0-3); EOS # 0.3 x10^3/uL (0.0-0.7); EOS % 3 % (0-3); HEMATOCRIT 36.4 % (36.0-47.0); HEMOGLOBIN 12.3 g/dL (12.0-15.5); LYMPH # 4.1 x10^3/uL (1.0-4.8); LYMPH % 36 % (24-48); MEAN CORPUSCULAR HEMOGLOBIN 31 pg (25-35); MEAN CORPUSCULAR HGB CONC 34 g/dL (31-37); MEAN CORPUSCULAR VOLUME 93 fL (79-100); MONO # 1.2 x10^3/uL (0.0-1.1); MONO % 10 % (0-9); NEUT # 5.6 x10^3/uL (1.8-7.7); NEUT % 50 % (31-73); PLATELET COUNT 284 x10^3/uL (140-400); RED BLOOD COUNT 3.93 x10^6/uL (3.50-5.40); RED CELL DISTRIBUTION WIDTH 13.8 % (11.5-14.5); WHITE BLOOD COUNT 11.4 x10^3/uL (4.0-11.0)
[2019-12-21 04:55] LABS: CALCIUM 9.3 mg/dL (8.5-10.1); GFR 69.1; POTASSIUM 3.9 mmol/L (3.5-5.1)
[2019-12-21 05:01] LABS: ALBUMIN 3.5 g/dL (3.4-5.0); ALBUMIN/GLOBULIN RATIO 0.9 (1.0-1.7); TOTAL BILIRUBIN 0.2 mg/dL (0.2-1.0); TOTAL PROTEIN 7.3 g/dL (6.4-8.2)
--- NOTE | 2019-12-21 05:08 | RAD ---
CHEST AP ONLY Clinical Indication: Reason: sob / Comparison: AP chest, January 07, 2019. Findings: The cardiomediastinal silhouette is normal. Lungs are clear. There is no pneumothorax. No pleural effusion is appreciated. No acute bone abnormality. IMPRESSION: No acute cardiopulmonary process. Electronically signed by: Richard Jaimes MD (12/21/2019 5:05 AM) [facility]
[2019-12-21] MEDS ORDERED: ONDANSETRON PF 4 MG/2 ML VIAL. IV PRN ×2 (05:30→13:45)
[2019-12-21] MEDS ORDERED: ALBUTEROL SULFATE 2.5 MG/3 ML NEBU. CONT NEB ONE (05:30)
[2019-12-21 05:56] LABS: BASE EXCESS ABG 1 mmol/L (-3-3); HCO3 ABG 26 mmol/L (21-28); PCO2 ABG 41 mmHg (35-46); PO2 ABG 77 mmHg (75-108); SAT O2 ABG 96 % (92-99)
[2019-12-21 06:05] LABS: FIO2 ABG 21
--- NOTE | 2019-12-21 08:28 | PDOC1 ---
History and Physical Date of Admission Date of Admission DATE: 12/21/19 TIME: 08:27 Identification/Chief Complaint Chief Complaint SEEN IN ER WITH WORSENING COUGH , ACUTE RESP DISTRESS , REQUIRED 1 HR BREATHING TREATMENT WITH WHEEZING SEVERE, asthma exac 59 year old female presents with a past medical history history of COPD hypertension presents with a chief complaint of shortness of breath. Patient states she has had shortness of breath wheezing associated with cough for 3 days progressively coming worse. Patient states she has been taking her home treatments with minimal relief. denies any associated fevers or chills., NO FEVER SINCE ADMIT failed trial of out pt treatment Past Medical History Past Medical History Past Medical History Past Medical History Past Medical History: Asthma, COPD, Diabetes-Type II, Hypertension Additional Past Medical Histor: FIBROID Past Surgical History: No Surgical History Additional Past Surgical Histo: HERNIA Smoking Status: Current Some Day Smoker Alcohol Use: None Drug Use: None fhx obesity Cardiovascular: HTN, Hyperlipidemia Pulmonary: Asthma, COPD GI: No pertinent hx Heme/Onc: No pertinent hx Hepatobiliary: No pertinent hx Psych: No pertinent hx Rheumatologic: No pertinent hx Infectious disease: No pertinent hx Renal/: No pertinent hx Endocrine: Diabetes Past Surgical History Past Surgical History: Hysterectomy Family History Family History: Hypertension Social History Smoke: Quit ALCOHOL: occassional Drugs: None Current Problem List Problem List Problems Medical Problems: (1) COPD exacerbation Status: Acute Current Medications Current Medications Current Medications Albuterol/ Ipratropium (Duoneb) 3 ml 1X ONCE NEB Last administered on 12/21/19at 04:41; Start 12/21/19 at 04:15; Stop 12/21/19 at 04:16; Status DC Methylprednisolone Sodium Succinate (SOLU-Medrol 125MG VIAL) 125 mg 1X ONCE IV Last administered on 12/21/19at 04:31; Start 12/21/19 at 04:15; Stop 12/21/19 at 04:16; Status DC Albuterol Sulfate (Ventolin Neb Soln) 10 mg 1X ONCE CONT NEB Last administered on 12/21/19at 05:49; Start 12/21/19 at 05:30; Stop 12/21/19 at 05:31; Status DC Ondansetron HCl (Zofran) 4 mg PRN Q8HRS PRN IV NAUSEA/VOMITING; Start 12/21/19 at 05:30; Stop 12/22/19 at 05:29 Active Scripts Active Prednisone 20 Mg Tablet 40 Mg PO DAILY 7 Days Culturelle (Lactobacillus Rhamnosus Gg) 1 Each Cap.sprink 1 Cap PO BID 28 Days Guaifenesin 100 Mg/5 Ml Liquid 200 Mg PO PRN Q4HRS PRN 10 Days Tylenol (Acetaminophen) 325 Mg Tablet 650 Mg PO PRN Q4HRS PRN 14 Days Doxycycline Hyclate 100 Mg Tablet 100 Mg PO BID 10 Days Reported Ventolin Hfa Inhaler (Albuterol Sulfate) 18 Gm Hfa.aer.ad 2 Puff IH PRN Q4-6HRS Allergies Allergies: Coded Allergies: No Known Drug Allergies (Unverified , 08/27/13) ROS Review of System Constitutional: Denies fever or chills. [] Eyes: Denies change in visual acuity. [] HENT: Denies nasal congestion or sore throat. [] Respiratory: Positive cough positive shortness of breath Cardiovascular: Denies chest pain or edema. [] GI: Denies abdominal pain, nausea, vomiting, bloody stools or diarrhea. [] : Denies dysuria. [] Musculoskeletal: Denies back pain or joint pain. [] Integument: Denies rash. [] Neurologic: Denies headache, focal weakness or sensory changes. [] Endocrine: Denies polyuria or polydipsia. [] Lymphatic: Denies swollen glands. [] Psychiatric: Denies depression or anxiety. [] 14 PT ROS OTHERWISE NEG ALLERGY AND IMMUNOLOGY: No: Hives, Insect Bite Sensitivity, Itchy/Watery Eyes, Nasal Congestion, Post Nasal Drip, Seasonal Allergies, Other Hematological and Lymphatic: No: Bleeding Problems, Blood Clots, Blood Transfusions, Brusing, Night Sweats, Pallor, Swollen Lymph Nodes, Other Respiratory: YES: Cough, Shortness of breath Physical Exam General: Alert, Oriented X3, Cooperative, No acute distress HEENT: PERRLA Lungs: Normal air movement, Other (SOME WHEEZING ) Heart: RRR Breasts: Not examined Abdomen: Normal bowel sounds, Soft Rectal Exam: not examined PELVIC: Examination not indicated Extremities: No cyanosis Skin: No breakdown Neuro: Normal speech, Strength at 5/5 X4 ext, Cranial nerves 3-12 NL Psych/Mental Status: Mental status NL, Mood NL Vitals Vitals Vital Signs Date Time Temp Pulse Resp B/P (MAP) Pulse Ox O2 Delivery O2 Flow Rate FiO2 12/21/19 06:11 92 18 169/82 (111) 94 Room Air 12/21/19 04:06 98.7 98.7 Labs Labs Laboratory Tests Test 12/21/19 04:26 12/21/19 04:39 12/21/19 05:51 White Blood Count 11.4 x10^3/uL (4.0-11.0) Red Blood Count 3.93 x10^6/uL (3.50-5.40) Hemoglobin 12.3 g/dL (12.0-15.5) Hematocrit 36.4 % (36.0-47.0) Mean Corpuscular Volume 93 fL (79-100) Mean Corpuscular Hemoglobin 31 pg (25-35) Mean Corpuscular Hemoglobin Concent 34 g/dL (31-37) Red Cell Distribution Width 13.8 % (11.5-14.5) Platelet Count 284 x10^3/uL (140-400) Neutrophils (%) (Auto) 50 % (31-73) Lymphocytes (%) (Auto) 36 % (24-48) Monocytes (%) (Auto) 10 % (0-9) Eosinophils (%) (Auto) 3 % (0-3) Basophils (%) (Auto) 1 % (0-3) Neutrophils # (Auto) 5.6 x10^3/uL (1.8-7.7) Lymphocytes # (Auto) 4.1 x10^3/uL (1.0-4.8) Monocytes # (Auto) 1.2 x10^3/uL (0.0-1.1) Eosinophils # (Auto) 0.3 x10^3/uL (0.0-0.7) Basophils # (Auto) 0.1 x10^3/uL (0.0-0.2) Sodium Level 139 mmol/L (136-145) Potassium Level 3.9 mmol/L (3.5-5.1) Chloride Level 103 mmol/L (98-107) Carbon Dioxide Level 29 mmol/L (21-32) Anion Gap 7 (6-14) Blood Urea Nitrogen 18 mg/dL (7-20) Creatinine 1.0 mg/dL (0.6-1.0) Estimated GFR (Cockcroft-Gault) 69.1 BUN/Creatinine Ratio 18 (6-20) Glucose Level 105 mg/dL (70-99) Calcium Level 9.3 mg/dL (8.5-10.1) Total Bilirubin 0.2 mg/dL (0.2-1.0) Aspartate Amino Transf (AST/SGOT) 16 U/L (15-37) Alanine Aminotransferase (ALT/SGPT) 22 U/L (14-59) Alkaline Phosphatase 74 U/L (46-116) Troponin I Quantitative < 0.017 ng/mL (0.000-0.055) VO-Mxe-B-Type Natriuretic Peptide 10 pg/mL (0-124) Total Protein 7.3 g/dL (6.4-8.2) Albumin 3.5 g/dL (3.4-5.0) Albumin/Globulin Ratio 0.9 (1.0-1.7) O2 Saturation 96 % (92-99) Arterial Blood pH 7.41 (7.35-7.45) Arterial Blood pCO2 at Patient Temp 41 mmHg (35-46) Arterial Blood pO2 at Patient Temp 77 mmHg (75-108) Arterial Blood HCO3 26 mmol/L (21-28) Arterial Blood Base Excess 1 mmol/L (-3-3) FiO2 21 Laboratory Tests Test 12/21/19 04:26 12/21/19 04:39 12/21/19 05:51 White Blood Count 11.4 x10^3/uL (4.0-11.0) Red Blood Count 3.93 x10^6/uL (3.50-5.40) Hemoglobin 12.3 g/dL (12.0-15.5) Hematocrit 36.4 % (36.0-47.0) Mean Corpuscular Volume 93 fL (79-100) Mean Corpuscular Hemoglobin 31 pg (25-35) Mean Corpuscular Hemoglobin Concent 34 g/dL (31-37) Red Cell Distribution Width 13.8 % (11.5-14.5) Platelet Count 284 x10^3/uL (140-400) Neutrophils (%) (Auto) 50 % (31-73) Lymphocytes (%) (Auto) 36 % (24-48) Monocytes (%) (Auto) 10 % (0-9) Eosinophils (%) (Auto) 3 % (0-3) Basophils (%) (Auto) 1 % (0-3) Neutrophils # (Auto) 5.6 x10^3/uL (1.8-7.7) Lymphocytes # (Auto) 4.1 x10^3/uL (1.0-4.8) Monocytes # (Auto) 1.2 x10^3/uL (0.0-1.1) Eosinophils # (Auto) 0.3 x10^3/uL (0.0-0.7) Basophils # (Auto) 0.1 x10^3/uL (0.0-0.2) Sodium Level 139 mmol/L (136-145) Potassium Level 3.9 mmol/L (3.5-5.1) Chloride Level 103 mmol/L (98-107) Carbon Dioxide Level 29 mmol/L (21-32) Anion Gap 7 (6-14) Blood Urea Nitrogen 18 mg/dL (7-20) Creatinine 1.0 mg/dL (0.6-1.0) Estimated GFR (Cockcroft-Gault) 69.1 BUN/Creatinine Ratio 18 (6-20) Glucose Level 105 mg/dL (70-99) Calcium Level 9.3 mg/dL (8.5-10.1) Total Bilirubin 0.2 mg/dL (0.2-1.0) Aspartate Amino Transf (AST/SGOT) 16 U/L (15-37) Alanine Aminotransferase (ALT/SGPT) 22 U/L (14-59) Alkaline Phosphatase 74 U/L (46-116) Troponin I Quantitative < 0.017 ng/mL (0.000-0.055) NH-Qxj-R-Type Natriuretic Peptide 10 pg/mL (0-124) Total Protein 7.3 g/dL (6.4-8.2) Albumin 3.5 g/dL (3.4-5.0) Albumin/Globulin Ratio 0.9 (1.0-1.7) O2 Saturation 96 % (92-99) Arterial Blood pH 7.41 (7.35-7.45) Arterial Blood pCO2 at Patient Temp 41 mmHg (35-46) Arterial Blood pO2 at Patient Temp 77 mmHg (75-108) Arterial Blood HCO3 26 mmol/L (21-28) Arterial Blood Base Excess 1 mmol/L (-3-3) FiO2 21 Images Images CHEST AP ONLY Clinical Indication: Reason: sob / Comparison: AP chest, January 07, 2019. Findings: The cardiomediastinal silhouette is normal. Lungs are clear. There is no pneumothorax. No pleural effusion is appreciated. No acute bone abnormality. IMPRESSION: No acute cardiopulmonary process. Electronically signed by: Richard Swann MD (12/21/2019 5:05 AM) [facility] DICTATED and SIGNED BY: RICHARD SWANN MD VTE Prophylaxis Ordered VTE Prophylaxis Devices: Yes VTE Pharmacological Prophylaxi: Yes Assessment/Plan Assessment/Plan IMPRESSION 1. acute EXAC COPD 2. MORBID OBESITY 3. PUI 4. acute asthma exac with resp failure , failed out pt trial 5. hypertension 6. diabetes PLAN========= ADMIT 6 FLOOR Covid r/o duonebs qid iv steroid taper o2 support prn codid screening accuchecks dvt prophylaxis Justifications for Admission Other Justification MARYCARMEN RUIZ MD Dec 21, 2019 08:28
[2019-12-21 08:55] VITALS: BP 150/66
[2019-12-21 11:05] VITALS: BP 138/66
--- NOTE | 2019-12-21 13:04 | EKG ---
[facility] [address] [place] [address] Test Date: 2019-12-21 Test Time: 04:13:43 Pat Name: PEDRO DUKE Department: Room: 2 Gender: F Cage Maker: : 1960 Requested By: NATALIIA CUMMINS Order Number: [id number] Reading MD: Alex Dawson MD Measurements Intervals [place] Rate: 94 P: 98 [place]: 144 QRS: 34 QRSD: 104 T: 32 QT: 368 QTc: 466 Interpretive Statements SINUS RHYTHM Electronically Signed On 12-21-2019 14:12:39 CDT by Alex Dawson MD
[2019-12-21] MEDS ORDERED: MAG HYDROX/ALUMINUM HYD/SIMETH 30 ML ORAL.SUSP PO PRN (13:45)
[2019-12-21] MEDS ORDERED: ACETAMINOPHEN 325 MG TABLET. PO PRN ×2 (13:45)
[2019-12-21] MEDS ORDERED: DOCUSATE SODIUM 100 MG CAPSULE. PO PRN (13:45)
[2019-12-21] MEDS ORDERED: NON FORMULARY ITEM (Albuterol Sulfate (Ventolin Hfa Inhaler) 2 PUFF) IH SCH (13:45)
[2019-12-21] MEDS ORDERED: guaiFENesin ORAL 200 MG/10 ML LIQUID. PO PRN (13:45)
[2019-12-21] MEDS ORDERED: 0.9 % SODIUM CHLORIDE 10 ML DISP.SYRIN. IV PRN (13:45)
[2019-12-21] MEDS ORDERED: SODIUM PHOSPHATES 19/7GM 133 ML ENEMA. PR PRN (13:45)
[2019-12-21] MEDS ORDERED: cloNIDine HCL 0.1 MG TABLET PO PRN (13:45)
[2019-12-21 15:00] VITALS: BP 151/61
[2019-12-21] MEDS: IV NORMAL SALINE 1000ML BAG 1,000 ML IV SCH (15:06)
[2019-12-21] MEDS: methylPREDNISolone SOD SUCC PF 125 MG/2 ML VIAL. IV SCH ×2 (15:06→21:51)
[2019-12-21] MEDS ORDERED: ALBUTEROL SULFATE 8GM INHALER. INH PRN (15:30)
--- NOTE | 2019-12-21 15:55 | NUR ---
SW following. Spoke with RN and reviewed chart. Pt from home. Pt on room air and COVID negative. Pt on IV fluids. Pt admitted observation. Discharge plan is home self-care when stable. No SW needs identified. SW to follow as needed. Addendum: 12/22/19 at 1014 by KADEN LOW SW Pt changed from observation to in-patient. Pt transferred to and FRANK Perez to follow as needed.
[2019-12-21] MEDS: guaiFENesin ORAL 200 MG/10 ML LIQUID. PO PRN (18:24)
[2019-12-21 19:55] VITALS: BP 140/112
[2019-12-21] MEDS: ALBUTEROL SULFATE 2.5 MG/3 ML NEBU. NEB PRN (20:10)
[2019-12-21] MEDS: ENOXAPARIN 40 MG/0.4 ML SYRINGE. SQ SCH (21:50)
[2019-12-21] MEDS: LACTOBACILLUS RHAMNOSUS GG 1 CAPSULE. PO SCH (21:50)
[2019-12-21 23:09] VITALS: BP 134/70
[2019-12-22] MEDS: IV NORMAL SALINE 1000ML BAG 1,000 ML IV SCH ×2 (00:56→00:57)
[2019-12-22] MEDS: ALBUTEROL SULFATE 2.5 MG/3 ML NEBU. NEB PRN (01:56)
[2019-12-22] MEDS: guaiFENesin ORAL 200 MG/10 ML LIQUID. PO PRN (02:17)
[2019-12-22 03:00] VITALS: BP 130/68
[2019-12-22] MEDS: methylPREDNISolone SOD SUCC PF 125 MG/2 ML VIAL. IV SCH ×2 (05:55→13:31)
[2019-12-22 07:00] VITALS: BP 124/64
[2019-12-22] MEDS: LACTOBACILLUS RHAMNOSUS GG 1 CAPSULE. PO SCH (08:41)
[2019-12-22] MEDS: ENOXAPARIN 40 MG/0.4 ML SYRINGE. SQ SCH (08:42)
[2019-12-22] MEDS ORDERED: AMLO5TAB10 PO (09:39)
[2019-12-22] MEDS ORDERED: PANT40TA6 PO (09:39)
[2019-12-22] MEDS ORDERED: ALBUTEROL SULFATE 2.5 MG/3 ML NEBU. NEB SCH (09:45)
[2019-12-22] MEDS ORDERED: BENZ100C PO (09:45)
[2019-12-22] MEDS ORDERED: PRED50TA PO (09:45)
[2019-12-22] MEDS ORDERED: BENZONATATE 100 MG CAPSULE. PO SCH (10:00)
[2019-12-22 11:00] VITALS: BP 129/57
--- NOTE | 2019-12-22 12:24 | NUR ---
SS following up with discharge planning. SS reviewed pt chart and discussed with pt RN. Pt is currently on room air. COVID19 negative. Discharge order on the chart for home with self care.
--- NOTE | 2019-12-22 14:09 | PDOC3 ---
Discharge Summary Visit Information Date of Admission: Dec 21, 2019 Date of Discharge: Dec 22, 2019 Admitting Diagnosis Comment: 1. acute EXAC COPD 2. MORBID OBESITY 3. PUI 4. acute asthma exac with resp failure , failed out pt trial 5. hypertension 6. diabetes Final Diagnosis Problems Medical Problems: (1) Asthma exacerbation Status: Acute (2) COPD exacerbation Status: Acute 1. acute EXAC COPD 2. MORBID OBESITY 3. COVID 19 ruled out 4. acute asthma exac with resp failure , failed out pt trial 5. hypertension 6. diabetes Brief Hospital Course Allergies Allergies Coded Allergies Type Severity Reaction Last Updated Verified No Known Drug Allergies 08/27/13 No Vital Signs Vital Signs Date Time Temp Pulse Resp B/P (MAP) Pulse Ox O2 Delivery O2 Flow Rate FiO2 12/22/19 11:00 98.0 84 18 129/57 (81) 97 Room Air 98.0 Lab Results Laboratory Tests Test 12/21/19 04:26 12/21/19 04:39 12/21/19 05:29 12/21/19 05:51 White Blood Count 11.4 x10^3/uL (4.0-11.0) Red Blood Count 3.93 x10^6/uL (3.50-5.40) Hemoglobin 12.3 g/dL (12.0-15.5) Hematocrit 36.4 % (36.0-47.0) Mean Corpuscular Volume 93 fL (79-100) Mean Corpuscular Hemoglobin 31 pg (25-35) Mean Corpuscular Hemoglobin Concent 34 g/dL (31-37) Red Cell Distribution Width 13.8 % (11.5-14.5) Platelet Count 284 x10^3/uL (140-400) Neutrophils (%) (Auto) 50 % (31-73) Lymphocytes (%) (Auto) 36 % (24-48) Monocytes (%) (Auto) 10 % (0-9) Eosinophils (%) (Auto) 3 % (0-3) Basophils (%) (Auto) 1 % (0-3) Neutrophils # (Auto) 5.6 x10^3/uL (1.8-7.7) Lymphocytes # (Auto) 4.1 x10^3/uL (1.0-4.8) Monocytes # (Auto) 1.2 x10^3/uL (0.0-1.1) Eosinophils # (Auto) 0.3 x10^3/uL (0.0-0.7) Basophils # (Auto) 0.1 x10^3/uL (0.0-0.2) Sodium Level 139 mmol/L (136-145) Potassium Level 3.9 mmol/L (3.5-5.1) Chloride Level 103 mmol/L (98-107) Carbon Dioxide Level 29 mmol/L (21-32) Anion Gap 7 (6-14) Blood Urea Nitrogen 18 mg/dL (7-20) Creatinine 1.0 mg/dL (0.6-1.0) Estimated GFR (Cockcroft-Gault) 69.1 BUN/Creatinine Ratio 18 (6-20) Glucose Level 105 mg/dL (70-99) Calcium Level 9.3 mg/dL (8.5-10.1) Total Bilirubin 0.2 mg/dL (0.2-1.0) Aspartate Amino Transf (AST/SGOT) 16 U/L (15-37) Alanine Aminotransferase (ALT/SGPT) 22 U/L (14-59) Alkaline Phosphatase 74 U/L (46-116) Troponin I Quantitative < 0.017 ng/mL (0.000-0.055) ER-Otc-A-Type Natriuretic Peptide 10 pg/mL (0-124) Total Protein 7.3 g/dL (6.4-8.2) Albumin 3.5 g/dL (3.4-5.0) Albumin/Globulin Ratio 0.9 (1.0-1.7) Coronavirus (PCR) Not detected (Not Detected) O2 Saturation 96 % (92-99) Arterial Blood pH 7.41 (7.35-7.45) Arterial Blood pCO2 at Patient Temp 41 mmHg (35-46) Arterial Blood pO2 at Patient Temp 77 mmHg (75-108) Arterial Blood HCO3 26 mmol/L (21-28) Arterial Blood Base Excess 1 mmol/L (-3-3) FiO2 21 Test 12/21/19 09:05 12/21/19 11:20 12/21/19 11:33 12/21/19 20:15 Troponin I Quantitative < 0.017 ng/mL (0.000-0.055) < 0.017 ng/mL (0.000-0.055) Glucose (Fingerstick) 169 mg/dL (70-99) 134 mg/dL (70-99) Test 12/22/19 08:07 12/22/19 11:54 Glucose (Fingerstick) 121 mg/dL (70-99) 130 mg/dL (70-99) Laboratory Tests Test 12/21/19 20:15 12/22/19 08:07 12/22/19 11:54 Glucose (Fingerstick) 134 mg/dL (70-99) 121 mg/dL (70-99) 130 mg/dL (70-99) Brief Hospital Course History and Physical Date of Admission Date of Admission DATE: 12/21/19 TIME: 08:27 Identification/Chief Complaint Chief Complaint SEEN IN ER WITH WORSENING COUGH , ACUTE RESP DISTRESS , REQUIRED 1 HR BREATHING TREATMENT WITH WHEEZING SEVERE, asthma exac 59 year old female presents with a past medical history history of COPD hypertension presents with a chief complaint of shortness of breath. Patient states she has had shortness of breath wheezing associated with cough for 3 days progressively coming worse. Patient states she has been taking her home treatments with minimal relief. denies any associated fevers or chills., NO FEVER SINCE ADMIT failed trial of out pt treatment She was ruled out for COVID 19 and seemed to be better after a few doses of Solu medrol. She was hoping to be able to bed discharged home Consult by Pulmonology was pending at the time of my note. If contaminated land consultant agrees with discharge she will going home in the afternoon Signs and symptoms of concern were discussed with the patient prior to discharge. All concerns addressed to the best of my abilities. Assessment Assessment IMAGING REPORT Signed PATIENT: PEDRO DUKE RACCOUNT: [id number] : 1960 LOCATION: ER AGE: 59 SEX: F EXAM STATUS: PRE ER ORD. PHYSICIAN: NATALIIA CUMMINS DO REASON: sob PROCEDURE: CHEST AP ONLY CHEST AP ONLY Clinical Indication: Reason: sob / Comparison: AP chest, January 07, 2019. Findings: The cardiomediastinal silhouette is normal. Lungs are clear. There is no pneumothorax. No pleural effusion is appreciated. No acute bone abnormality. IMPRESSION: No acute cardiopulmonary process. Discharge Information Condition at Discharge: Improved Follow Up: Weeks Disposition/Orders: D/C to Home Scheduled Albuterol Sulfate (Ventolin Hfa Inhaler) 18 Gm Hfa.aer.ad, 2 PUFF IH PRN Q4- 6HRS, #1 (Reported) Entered as Reported by: GADIEL LIEBERMAN on 08/03/14 1501 Last Action: Converted on 12/21/191332 by MARYCARMEN RUIZ MD Amlodipine Besylate (Amlodipine Besylate) 5 Mg Tablet, 1 TAB PO DAILY for hypertension, (Reported) Entered as Reported by: WILDA BIGGS on 12/22/19938 Last Action: New Order on 12/22/19938 by WILDA BIGGS Benzonatate (Tessalon Perle) 100 Mg Capsule, 1 CAP PO TID for cough, #21 Prescribed by: KAY MARSH MD on 12/22/19944 Lactobacillus Rhamnosus Gg (Culturelle) 1 Each Cap.sprink, 1 CAP PO BID for supplement for 28 Days, #56 Prescribed by: MARYCARMEN RUIZ MD on 01/09/191253 Last Action: Continued on 12/21/191332 by MARYCARMEN RUIZ MD Pantoprazole Sodium (Pantoprazole Sodium) 40 Mg Tablet.dr, 1 TAB PO DAILY for GERD, (Reported) Entered as Reported by: WILDA BIGGS on 12/22/19938 Last Action: New Order on 12/22/19938 by WILDA BIGGS Prednisone (Prednisone) 50 Mg Tablet, 1 TAB PO DAILY for COPD, #5 Prescribed by: KAY MARSH MD on 12/22/19944 Scheduled PRN Acetaminophen (Tylenol) 325 Mg Tablet, 650 MG PO PRN Q4HRS PRN for TEMP OVER 100.4F OR MILD PAIN for 14 Days, #30 Prescribed by: MARYCARMEN RUIZ MD on 01/09/191253 Last Action: Continued on 12/21/191332 by MARYCARMEN RUIZ MD Guaifenesin (Guaifenesin) 100 Mg/5 Ml Liquid, 200 MG PO PRN Q4HRS PRN for COUGH for 10 Days, #120 Prescribed by: MARYCARMEN RUIZ MD on 01/09/191253 Last Action: Continued on 12/21/191332 by MARYCARMEN RUIZ MD Discontinued Medications Doxycycline Hyclate (Doxycycline Hyclate) 100 Mg Tablet, 100 MG PO BID for bronchitis for 10 Days, #20 Prescribed by: MARYCARMEN RUIZ MD on 01/09/191253 Last Action: HELD on 12/21/191332 by MARYCARMEN RUIZ MD Prednisone (Prednisone) 20 Mg Tablet, 40 MG PO DAILY for copd for 7 Days, #14 Prescribed by: MARYCARMEN RUIZ MD on 01/09/191253 Last Action: HELD on 12/21/191332 by MARYCARMEN RUIZ MD Justicifation of Admission Dx: Justifications for Admission: Justification of Admission Dx: N/A KAY MARSH MD Dec 22, 2019 14:09
--- NOTE | 2019-12-22 14:50 | NUR ---
Discharge: patient request prescriptions be sent to [facility] on [address] [phone], spoke with Chikis. Discharge teaching verbal and written. Reviewed medications, follow-up, COPD, ect. Patient verbalized understanding. All belongings with patient. Waiting on patients ride
[2019-12-22 15:00] VITALS: BP 141/69
--- NOTE | 2019-12-22 17:16 | PDOC ---
PULMONARY PROGRESS NOTES DATE: 12/22/19 TIME: 17:15 Vitals Vital Signs Date Time Temp Pulse Resp B/P (MAP) Pulse Ox O2 Delivery O2 Flow Rate FiO2 12/22/19 15:00 98.3 49 20 141/69 (93) 97 Room Air 98.3 General: Alert, Oriented X4 HEENT: Other Lungs: Crackles, Other Cardiovascular: S1, S2 Abdomen: Soft, Non-tender Extremities: No Edema Labs Laboratory Tests Test 12/21/19 04:26 12/21/19 04:39 12/21/19 05:29 12/21/19 05:51 White Blood Count 11.4 x10^3/uL (4.0-11.0) Red Blood Count 3.93 x10^6/uL (3.50-5.40) Hemoglobin 12.3 g/dL (12.0-15.5) Hematocrit 36.4 % (36.0-47.0) Mean Corpuscular Volume 93 fL (79-100) Mean Corpuscular Hemoglobin 31 pg (25-35) Mean Corpuscular Hemoglobin Concent 34 g/dL (31-37) Red Cell Distribution Width 13.8 % (11.5-14.5) Platelet Count 284 x10^3/uL (140-400) Neutrophils (%) (Auto) 50 % (31-73) Lymphocytes (%) (Auto) 36 % (24-48) Monocytes (%) (Auto) 10 % (0-9) Eosinophils (%) (Auto) 3 % (0-3) Basophils (%) (Auto) 1 % (0-3) Neutrophils # (Auto) 5.6 x10^3/uL (1.8-7.7) Lymphocytes # (Auto) 4.1 x10^3/uL (1.0-4.8) Monocytes # (Auto) 1.2 x10^3/uL (0.0-1.1) Eosinophils # (Auto) 0.3 x10^3/uL (0.0-0.7) Basophils # (Auto) 0.1 x10^3/uL (0.0-0.2) Sodium Level 139 mmol/L (136-145) Potassium Level 3.9 mmol/L (3.5-5.1) Chloride Level 103 mmol/L (98-107) Carbon Dioxide Level 29 mmol/L (21-32) Anion Gap 7 (6-14) Blood Urea Nitrogen 18 mg/dL (7-20) Creatinine 1.0 mg/dL (0.6-1.0) Estimated GFR (Cockcroft-Gault) 69.1 BUN/Creatinine Ratio 18 (6-20) Glucose Level 105 mg/dL (70-99) Calcium Level 9.3 mg/dL (8.5-10.1) Total Bilirubin 0.2 mg/dL (0.2-1.0) Aspartate Amino Transf (AST/SGOT) 16 U/L (15-37) Alanine Aminotransferase (ALT/SGPT) 22 U/L (14-59) Alkaline Phosphatase 74 U/L (46-116) Troponin I Quantitative < 0.017 ng/mL (0.000-0.055) QQ-Wfc-T-Type Natriuretic Peptide 10 pg/mL (0-124) Total Protein 7.3 g/dL (6.4-8.2) Albumin 3.5 g/dL (3.4-5.0) Albumin/Globulin Ratio 0.9 (1.0-1.7) Coronavirus (PCR) Not detected (Not Detected) O2 Saturation 96 % (92-99) Arterial Blood pH 7.41 (7.35-7.45) Arterial Blood pCO2 at Patient Temp 41 mmHg (35-46) Arterial Blood pO2 at Patient Temp 77 mmHg (75-108) Arterial Blood HCO3 26 mmol/L (21-28) Arterial Blood Base Excess 1 mmol/L (-3-3) FiO2 21 Test 12/21/19 09:05 12/21/19 11:20 12/21/19 11:33 12/21/19 20:15 Troponin I Quantitative < 0.017 ng/mL (0.000-0.055) < 0.017 ng/mL (0.000-0.055) Glucose (Fingerstick) 169 mg/dL (70-99) 134 mg/dL (70-99) Test 12/22/19 08:07 12/22/19 11:54 Glucose (Fingerstick) 121 mg/dL (70-99) 130 mg/dL (70-99) Laboratory Tests Test 12/21/19 20:15 12/22/19 08:07 12/22/19 11:54 Glucose (Fingerstick) 134 mg/dL (70-99) 121 mg/dL (70-99) 130 mg/dL (70-99) Medications Active Scripts Medications Dose Route/Sig Max Daily Dose Days Date Category Tessalon Perle (Benzonatate) 100 Mg Capsule 1 Cap PO TID 12/22/19 Rx Prednisone 50 Mg Tablet 1 Tab PO DAILY 12/22/19 Rx Pantoprazole Sodium 40 Mg Tablet.dr 1 Tab PO DAILY 12/22/19 Reported Amlodipine Besylate 5 Mg Tablet 1 Tab PO DAILY 12/22/19 Reported Culturelle (Lactobacillus Rhamnosus Gg) 1 Each Cap.sprink 1 Cap PO BID 28 01/09/19 Rx Guaifenesin 100 Mg/5 Ml Liquid 200 Mg PO PRN Q4HRS PRN 10 01/09/19 Rx Tylenol (Acetaminophen) 325 Mg Tablet 650 Mg PO PRN Q4HRS PRN 14 01/09/19 Rx Ventolin Hfa Inhaler (Albuterol Sulfate) 18 Gm Hfa.aer.ad 2 Puff IH PRN Q4-6HRS 08/03/14 Reported Impression . Full note dictated JAME FUCHS MD Dec 22, 2019 17:16
--- NOTE | 2019-12-22 21:00 | CONS ---
DATE OF CONSULTATION: 12/22/2019 ATTENDING PHYSICIAN: Abhi Kaufman MD. CONSULTING PHYSICIAN: Jame Fuchs MD. REASON FOR CONSULTATION: The patient is seen in pulmonary consultation at the request of Dr. Kaufman for increasing shortness of air and wheezing. HISTORY OF PRESENT ILLNESS: The patient is a 59-year-old that normally attends to [facility]. She has a history of asthma and COPD. She smokes. She presented with wheezing and increasing shortness of breath, cough, mostly nonproductive. I queried her about the possibility of reflux. She drinks caffeinated beverages all day long. She denies fever, chills or night sweats. No COVID-19 exposures. Her x-ray was obtained, which revealed no infiltrates. Labs were likewise reviewed. White count was 11.4. She tested negative for the SARS-CoV-2. An arterial blood gas on room air revealed a pO2 of 77. PAST MEDICAL HISTORY: Remarkable for asthma, COPD, tobacco dependent, type 2 diabetes, hypertension, hernia repair. SOCIAL HISTORY: She continues to smoke. FAMILY HISTORY: No family history of lung disorders. REVIEW OF SYSTEMS: As indicated above. Otherwise, a 10-point system was reviewed and negative. PHYSICAL EXAMINATION: VITAL SIGNS: Stable. O2 saturation was greater than 92%. LUNGS: Clear with some mild expiratory wheeze. CARDIOVASCULAR: Regular rate and rhythm with S1, S2, no S3. ABDOMEN: Soft, nontender, nondistended. EXTREMITIES: No clubbing, cyanosis, or edema. LABORATORY DATA: Chest x-ray reviewed as indicated above. IMPRESSION: 1. Progressive dyspnea secondary to acute exacerbation of chronic obstructive pulmonary disease with an asthma component. 2. Cough related to the above in conjunction with significant reflux. The patient takes in caffeine all day long. 3. Obesity. 4. Type 2 diabetes. 5. Hypertension. PLAN: 1. The patient has done well, she could be discharged home on prednisone. No antibiotics needed. 2. Lvil-byw-gafuzry Pepcid. 3. Follow up at [facility]. 4. The patient instructed on the importance of discontinuing all caffeinated beverages. JAME FUCHS MD DR: FRANK/olivier JOB#: [id number] / [id number]
== END 2019-12-22 15:15 | disposition home or self-care (01) ==
LOC: ER 04:06 → ED HOLD 06:26 → 6 SOUTH 06:51 → 2 SOUTH 20:00
PROVIDERS: ADMIT Internal Medicine; ATTEND Internal Medicine
DX: J44.1 Chronic obstructive pulmonary disease with (acute) exacerbation (principal); Z20.828 Contact with and (suspected) exposure to other viral communicable diseases; E11.9 Type 2 diabetes mellitus without complications; I10 Essential (primary) hypertension; K21.9 Gastro-esophageal reflux disease without esophagitis; F17.200 Nicotine dependence, unspecified, uncomplicated; E78.5 Hyperlipidemia, unspecified; E66.01 Morbid (severe) obesity due to excess calories; Z90.710 Acquired absence of both cervix and uterus
CPT/HCPCS: 36415; 36600; 71045; 80053; 82805; 82962; 83880; 84484; 85025; 93005; 94640; 94644; 94760; 96361; 96372; 96374; 96376; 99285; G0378; J1650; J2930; J7030; U0003; G0379; J7613